=== PATIENT | female | born 1935 | race Caucasian/White ===

== ENCOUNTER → 2017-06-12 | Outpatient (CLI) | payer MEDICARE ==
[~2017-06-12] MED LIST: AMLO-1 PO; ASP325 PO; ASPI-1471 PO; ATOR10TA65 PO; LOSA50TA72 PO; MET500 PO; METF-410 PO; METO25TA23 PO; SPIR1TAB26 PO; SPIR1TAB28 PO; TRI05T TP
[2017-06-12 10:37] LABS: PLATELET COUNT, AUTOMATED 214 K/uL (150-450)
== END ==
LOC: LAB 10:22
PROVIDERS: ATTEND Emergency Medicine
DX: E11.9 Type 2 diabetes mellitus without complications (principal); I10 Essential (primary) hypertension; E78.00 Pure hypercholesterolemia, unspecified
CPT/HCPCS: 36415; 82040; 82247; 82310; 82374; 82435; 82465; 82565; 82947; 83036; 83718; 84075; 84132; 84155; 84295; 84450; 84460; 84478; 84520; 85025

== ENCOUNTER → 2017-12-21 | Outpatient (CLI) | payer MEDICARE ==
[~2017-12-21] MED LIST changes: +CLIN300C99 PO; +LEVO750T44 PO; -METF-410 PO; +METF-411 PO
[2017-12-21 11:52] LABS: PLATELET COUNT, AUTOMATED 217 K/uL (150-450)
== END ==
LOC: LAB 11:17
PROVIDERS: ATTEND Emergency Medicine
DX: L03.90 Cellulitis, unspecified (principal); I51.9 Heart disease, unspecified
CPT/HCPCS: 36415; 82310; 82374; 82435; 82565; 82947; 83036; 83880; 84132; 84295; 84520; 85025; 86140

== ENCOUNTER 2018-06-15 13:01 | Inpatient (IN) | payer MEDICARE ==
[~2018-06-15] VITALS: Ht 162.6 cm; Wt 88.5 kg
--- NOTE | 2018-06-15 13:05 | ER Report ---
History and Physical Time Seen By MD: 13:05 (MARIO GARCIA MD) HPI/ROS CHIEF COMPLAINT: Fall bilateral leg pain HISTORY OF PRESENT ILLNESS: Patient is a very pleasant 82-year-old female who is brought to the emergency department by ambulance status post fall that occurred around midnight last evening. Patient states she was carrying a plate of toast and a glass of milk and she felt her legs start to get weak as she was ambulat ing from her kitchen into her living room. She tried to brace herself on a chair but missed and fell to the ground. She denies striking her head or losing consciousness but she was unable to get up. She complains of left elbow pain, right hip pain and bilateral lower extremity pain. She denies chest pain or shortness of breath. She denies abdominal pain. Patient is not the best historian additional history was obtained from the electronic medical record. Patient denies feeling any type of febrile illness. She was last seen by her primary care provider in December 2017 for routine follow-up. He denies any recent changes in her medications. She cannot recall what her blood sugars run. 06/15/2018 1:36:09 pm the patient's son is now the bedside and provides additional history. He was the one that called rate engineer when he was unable to get into the patient's house. States that the patient has received wound care up at [facility] in the past and had 4 lower extremities looking good. But she is now living by herself and is no longer going for routine care and is unable to bend over to provide adequate cleansing to her feet. REVIEW OF SYSTEMS: Constitutional: No fever, no chills. Eyes: No discharge. ENT: No sore throat. Cardiovascular: No chest pain, no palpitations. Respiratory: No cough, no shortness of breath. Gastrointestinal: No abdominal pain, no vomiting. Genitourinary: No hematuria. Musculoskeletal: Left elbow, right hip bilateral lower extremity pain Skin: Severe stasis dermatitis to bilateral lower extremities. Neurological: No headache. (MARIO GARCIA MD) Allergies: Coded Allergies: OSMIN Inhibitors (Unverified Allergy, Unknown, UNKNOWN, 06/08/14) latex (Verified Allergy, Unknown, 06/15/18) olmesartan (Unverified Allergy, Unknown, RASH on lower legs, 06/08/14) Home Meds Active Scripts Atorvastatin Calcium (ATORVASTATIN CALCIUM) 10 Mg Tablet, 1 TAB PO DAILY for to lower cholesterol. , #90 TAB 3 Refills Prov:ARTURO CALDWELL MD 06/04/18 Losartan Potassium (LOSARTAN POTASSIUM) 50 Mg Tablet, 1 TAB PO QDAY, #90 TAB 3 Refills Prov:ARTURO CALDWELL MD 06/04/18 Metoprolol Succinate (METOPROLOL SUCCINATE) 25 Mg Tab.er.24h, 1 TAB PO QDAY for to slow heart rate., #90 TAB 3 Refills Prov:ARTURO CALDWELL MD 06/04/18 Spironolact/Hydrochlorothiazid (SPIRONOLACTONE-HCTZ 25-25 TAB) 1 Each Tablet, 0.5 EACH PO QDAY, #45 TAB 3 Refills Prov:ARTURO CALDWELL MD 06/03/18 Reported Medications Aspirin (ASPIR 81) 81 Mg Tablet.dr, 1 TAB PO QDAY, TAB 06/08/14 Past Medical/Surgical History Past medical history for hyperlipidemia, hypertension, nocturnal hypoxemia, history of stasis dermatitis on bilateral lower extremities history of type II diabetes, history of cataract extraction, history of appendectomy. (MARIO GARCIA MD) Smoking Status: Never Smoker (MARIO GARCIA MD) Constitutional Vital Sign - Last 24 Hours 06/15/18 06/15/18 06/15/18 06/15/18 13:01 13:05 13:09 13:16 Temp 97.2 Pulse ??? 95 95 Resp 18 11 B/P (MAP) 134/86 134/86 (102) O2 Delivery Nasal Cannula 06/15/18 06/15/18 06/15/18 06/15/18 13:20 13:30 13:31 13:31 Pulse 97 Resp 14 B/P (MAP) 128/112 (117) 143/40 (74) Pulse Ox 95 O2 Flow Rate 2.0 06/15/18 06/15/18 06/15/18 06/15/18 13:40 13:46 13:50 14:00 Pulse 95 Resp 26 B/P (MAP) 100/37 (58) 117/44 (68) 123/35 (64) Pulse Ox 94 06/15/18 06/15/18 06/15/18 06/15/18 14:01 14:10 14:16 14:20 Pulse 96 94 Resp 17 B/P (MAP) 119/45 (69) 122/42 (68) Pulse Ox 93 06/15/18 06/15/18 06/15/18 06/15/18 14:30 14:31 14:40 14:46 Pulse 95 94 Resp 6 32 B/P (MAP) 136/43 (74) 133/93 (106) Pulse Ox 95 06/15/18 06/15/18 14:50 15:00 B/P (MAP) 131/52 (78) 151/49 (83) (MANN,SALLY V DO) Physical Exam General/Constitutional: Patient is awake, alert, nontoxic and in no acute respiratory distress. Head: Normocephalic and atraumatic. Eyes: Conjunctival clear, Pupils are equal and reactive to light. Extraocular muscles are intact and symmetrical. Sclera are clear and anicteric. Ears:External canals are clear. Nares: No rhinorrhea or bleeding. Turbinates are pink and moist. Oropharyngeal: Mucous membranes are moist. There is no pharyngeal erythema or exudate. There are no palatal petechiae. Uvula is midline and symmetrical. Neck: Supple, no adenopathy. Cardiovascular: Heart is regular rate and rhythm without audible murmurs, rubs or gallops. Pulmonary: Lungs are clear to auscultation bilaterally. There are no wheezes, rales, or rhonchi. Chest rise is symmetrical Abdomen: Protuberent, Soft, nontender, no guarding or peritoneal signs. Extremities: Patient has a bruise to the olecranon on the left elbow but normal range of motion. Patient also is able to lift both legs off the bed against gravity but not resistance. Patient does have some right hip pain to palpation on exam without obvious deformity. Left hip is otherwise unremarkable. Patient has severe stasis dermatitis with keratosis and scaling. She has evidence of some abrasions to the top of the right foot as well as bottom of the right foot. These appear to be inflamed and secondarily infected. Both legs are warm to the touch. There is in addition to the keratosis the patient had been laying in some garbage after the fall and is stuck to the patient's skin. Neuro: Alert and oriented X3, (MARIO GARCIA MD) Medical Decision Making Data Points Result Diagram: 06/16/18 0550 06/16/18 0550 Laboratory Hematology Test 06/15/18 13:27 06/15/18 13:28 06/15/18 14:57 06/15/18 16:43 Influenza Virus Type A (PCR) Negative (NEGATIVE) Influenza Virus Type B (PCR) Negative (NEGATIVE) Red Blood Count 4.34 M/uL (4.17-5.56) Mean Corpuscular Volume 88.9 fL (80.0-96.0) Mean Corpuscular Hemoglobin 29.2 pg (26.0-33.0) Mean Corpuscular Hemoglobin Concent 32.8 g/dL (32.0-36.0) Red Cell Distribution Width 14.1 % (11.5-14.5) Mean Platelet Volume 11.2 fL (7.2-11.1) Neutrophils (%) (Auto) 92.5 % (39.4-72.5) Lymphocytes (%) (Auto) 3.4 % (17.6-49.6) Monocytes (%) (Auto) 3.9 % (4.1-12.4) Eosinophils (%) (Auto) 0.0 % (0.4-6.7) Basophils (%) (Auto) 0.2 % (0.3-1.4) Nucleated RBC Relative Count (auto) 0.0 /100WBC Neutrophils # (Auto) 21.5 K/uL (2.0-7.4) Lymphocytes # (Auto) 0.8 K/uL (1.3-3.6) Monocytes # (Auto) 0.9 K/uL (0.3-1.0) Eosinophils # (Auto) 0.0 K/uL (0.0-0.5) Basophils # (Auto) 0.0 K/uL (0.0-0.1) Nucleated RBC Absolute Count (auto) 0.00 K/uL Peripheral Blood Smear Yes Y/N Erythrocyte Sedimentation Rate 59 mm/HOUR (0-30) Prothrombin Time 14.8 seconds (12.0-14.4) Prothromb Time International Ratio 1.16 Activated Partial Thromboplast Time 43 seconds (23-35) Sodium Level 139 mmol/L (137-145) Potassium Level 4.9 mmol/L (3.5-5.0) Chloride Level 113 mmol/L (98-107) Carbon Dioxide Level 19 mmol/L (22-31) Blood Urea Nitrogen 65 mg/dl (7-18) Creatinine 2.20 mg/dl (0.52-1.04) Glomerular Filtration Rate Calc 21.3 Random Glucose 130 mg/dl (75-110) Lactate 2.1 mmol/L (0.7-2.1) Calcium Level 9.1 mg/dl (8.4-10.2) Magnesium Level 2.2 mg/dl (1.7-2.2) Total Bilirubin 0.9 mg/dl (0.2-1.3) Aspartate Amino Transf (AST/SGOT) 105 U/L (0-35) Alanine Aminotransferase (ALT/SGPT) 42 U/L (0-56) Alkaline Phosphatase 101 U/L (0-126) C-Reactive Protein 22.2 mg/dl (<1.0) B-Type Natriuretic Peptide 152 pg/ml (0-100) Total Protein 6.4 g/dl (6.3-8.2) Albumin 3.1 g/dl (3.5-5.0) Urine Color Yellow Urine Clarity Clear Urine pH 5.0 pH (4.8-9.5) Urine Specific [place] 1.016 Urine Protein Negative mg/dL (NEGATIVE) Urine Glucose (UA) Negative mg/dL (NEGATIVE) Urine Ketones Trace mg/dL (NEGATIVE) Urine Blood Moderate (NEGATIVE) Urine Nitrite Negative (NEGATIVE) Urine Bilirubin Negative (NEGATIVE) Urine Urobilinogen Negative mg/dL (0.2-1.9) Urine Leukocyte Esterase Negative (NEGATIVE) Urine RBC <1 /HPF (0-2/HPF) Urine WBC <1 /HPF (0-5/HPF) Urine Squamous Epithelial Cells None /LPF (NONE-FEW) Urine Bacteria Negative /HPF (NONE-FEW) Urine Mucus None /HPF (NONE-FEW) Total Creatine Kinase 2965 U/L (30-135) Creatine Kinase MB 105 U/L Creatine Kinase MB % 4 % Troponin I 0.487 ng/ml Chemistry Test 06/15/18 13:27 06/15/18 13:28 06/15/18 14:57 06/15/18 16:43 Influenza Virus Type A (PCR) Negative (NEGATIVE) Influenza Virus Type B (PCR) Negative (NEGATIVE) White Blood Count 23.2 k/uL (4.5-11.0) Red Blood Count 4.34 M/uL (4.17-5.56) Hemoglobin 12.7 g/dL (12.0-16.0) Hematocrit 38.6 % (34.0-47.0) Mean Corpuscular Volume 88.9 fL (80.0-96.0) Mean Corpuscular Hemoglobin 29.2 pg (26.0-33.0) Mean Corpuscular Hemoglobin Concent 32.8 g/dL (32.0-36.0) Red Cell Distribution Width 14.1 % (11.5-14.5) Platelet Count 271 K/uL (150-450) Mean Platelet Volume 11.2 fL (7.2-11.1) Neutrophils (%) (Auto) 92.5 % (39.4-72.5) Lymphocytes (%) (Auto) 3.4 % (17.6-49.6) Monocytes (%) (Auto) 3.9 % (4.1-12.4) Eosinophils (%) (Auto) 0.0 % (0.4-6.7) Basophils (%) (Auto) 0.2 % (0.3-1.4) Nucleated RBC Relative Count (auto) 0.0 /100WBC Neutrophils # (Auto) 21.5 K/uL (2.0-7.4) Lymphocytes # (Auto) 0.8 K/uL (1.3-3.6) Monocytes # (Auto) 0.9 K/uL (0.3-1.0) Eosinophils # (Auto) 0.0 K/uL (0.0-0.5) Basophils # (Auto) 0.0 K/uL (0.0-0.1) Nucleated RBC Absolute Count (auto) 0.00 K/uL Peripheral Blood Smear Yes Y/N Erythrocyte Sedimentation Rate 59 mm/HOUR (0-30) Prothrombin Time 14.8 seconds (12.0-14.4) Prothromb Time International Ratio 1.16 Activated Partial Thromboplast Time 43 seconds (23-35) Glomerular Filtration Rate Calc 21.3 Lactate 2.1 mmol/L (0.7-2.1) Calcium Level 9.1 mg/dl (8.4-10.2) Magnesium Level 2.2 mg/dl (1.7-2.2) Total Bilirubin 0.9 mg/dl (0.2-1.3) Aspartate Amino Transf (AST/SGOT) 105 U/L (0-35) Alanine Aminotransferase (ALT/SGPT) 42 U/L (0-56) Alkaline Phosphatase 101 U/L (0-126) C-Reactive Protein 22.2 mg/dl (<1.0) B-Type Natriuretic Peptide 152 pg/ml (0-100) Total Protein 6.4 g/dl (6.3-8.2) Albumin 3.1 g/dl (3.5-5.0) Urine Color Yellow Urine Clarity Clear Urine pH 5.0 pH (4.8-9.5) Urine Specific [place] 1.016 Urine Protein Negative mg/dL (NEGATIVE) Urine Glucose (UA) Negative mg/dL (NEGATIVE) Urine Ketones Trace mg/dL (NEGATIVE) Urine Blood Moderate (NEGATIVE) Urine Nitrite Negative (NEGATIVE) Urine Bilirubin Negative (NEGATIVE) Urine Urobilinogen Negative mg/dL (0.2-1.9) Urine Leukocyte Esterase Negative (NEGATIVE) Urine RBC <1 /HPF (0-2/HPF) Urine WBC <1 /HPF (0-5/HPF) Urine Squamous Epithelial Cells None /LPF (NONE-FEW) Urine Bacteria Negative /HPF (NONE-FEW) Urine Mucus None /HPF (NONE-FEW) Total Creatine Kinase 2965 U/L (30-135) Creatine Kinase MB 105 U/L Creatine Kinase MB % 4 % Troponin I 0.487 ng/ml Coagulation Test 06/15/18 13:28 Prothrombin Time 14.8 seconds Prothromb Time International Ratio 1.16 Activated Partial Thromboplast Time 43 seconds Urinalysis Test 06/15/18 14:57 Urine Color Yellow Urine Clarity Clear Urine pH 5.0 pH (4.8-9.5) Urine Specific [place] 1.016 Urine Protein Negative mg/dL (NEGATIVE) Urine Glucose (UA) Negative mg/dL (NEGATIVE) Urine Ketones Trace mg/dL (NEGATIVE) Urine Blood Moderate (NEGATIVE) Urine Nitrite Negative (NEGATIVE) Urine Bilirubin Negative (NEGATIVE) Urine Urobilinogen Negative mg/dL (0.2-1.9) Urine Leukocyte Esterase Negative (NEGATIVE) Urine RBC <1 /HPF (0-2/HPF) Urine WBC <1 /HPF (0-5/HPF) Urine Squamous Epithelial Cells None /LPF (NONE-FEW) Urine Bacteria Negative /HPF (NONE-FEW) Urine Mucus None /HPF (NONE-FEW) (PRESTONAMANDASALLY DO) EKG/Imaging EKG Interpretation EKG is of poor quality secondary to patient tremor however no obvious ST segment elevation. Patient does have nonspecific ST and T-wave changes. Monitor Interpretation: Normal Sinus Rhythm (MARIO GARCIA MD) Imaging no acute fractures (SALLY DARNELL DO) ED Course/Re-evaluation ED Course 06/15/2018 1:37:23 pm plan at this time will be to provide local wound care we will update the patient's tetanus status. She appears to have cellulitis and we will treat this empirically. We will perform an infectious-type workup we'll x- ray the left elbow, right hip bilateral tib-fib and feet. Patient will likely require admission. 06/15/2018 2:55:00 pm patient with elevated troponin. I again questioned whe ther the patient has experienced any chest pain pressure or shortness of breath over the last few days which she denies. The only symptom that could correlate with acute coronary syndrome would be weakness and perhaps that caused the past. I did discuss with the patient the possibility of transferring to a higher level of care for cardiac evaluation. I am awaiting for the patient's son to return to also discuss this with him as patient is unsure if she wants to be transferred. The elevated troponin could however be related to being on the ground causing demand ischemia rather than true clot. Patient does have an elevated white blood cell count. Both legs were cleansed thoroughly and dressed with bacitracin and Xeroform gauze. Patient is given 1 g of Rocephin IV for infection. I am awaiting placement of a Cobian catheter with temperature probe. We will also obtain imaging studies after Cobian placement. Decision to Disposition Date: Jun 16, 2018 Decision to Disposition Time: 19:00 (MARIO GARCIA MD) Clinical Indication for ER IV: IV Access ED Course 06/15/2018 6:06:39 pm Spoke with pt at length and her son. They were told that at some point pt had a heart attack. PT denies cp but I let her know that you do not always need to have pain. Pt states she is DNR/DNI and does not want a nything agressive. I spoke to son and explained that further evaluation by catherization could be done if we transfer to [place]. Family and pt want to stay here in [place] "we went down that road with my and that is not something my mom wants". Dr. Gaming willing to keep pt as long as she u nderstands we can not be agressive with her heart here in [place]. Decision to Disposition Date: Jun 15, 2018 Decision to Disposition Time: 18:18 (SALLY DARNELL DO) Depart Departure Latest Vital Signs Vital Signs Date Time Temp Pulse Resp B/P (MAP) Pulse Ox O2 Delivery O2 Flow Rate FiO2 06/15/18 15:00 151/49 (83) 06/15/18 14:46 94 32 95 06/15/18 13:31 2.0 06/15/18 13:05 97.2 Nasal Cannula (SALLY DARNELL DO) Impression: Primary Impression: Rhabdomyolysis Additional Impressions: Bilateral cellulitis of lower leg Renal insufficiency Non-ST elevated myocardial infarction (non-STEMI) Condition: Condition Unchanged Disposition: Admitted from ER Referrals: ARTURO CALDWELL MD (PCP) Problem Qualifiers Primary Impression: Rhabdomyolysis Rhabdomyolysis type: traumatic Encounter type: initial encounter Qualified Codes: T79.6XXA - Traumatic ischemia of muscle, initial encounter MARIO GARCIA MD Jun 15, 2018 13:05 SALLY DARNELL DO Jun 15, 2018 18:18
[2018-06-15] MEDS ORDERED: NS(*) 0.9% 500 ML BAG 500 ML IV ONE ×2 (13:15→15:40)
[2018-06-15] MEDS ORDERED: cefTRIAXone 1 GM VIAL IVP ONE (13:30)
[2018-06-15] MEDS ORDERED: DIPHTH/TETANUS/ACEL. PERTUSSIS IM ONLY ONE (13:40)
--- NOTE | 2018-06-15 14:05 | EKG ---
FACILITY: [facility] PATIENT NAME: PERICO MCFADDEN : [id number] MR: [id number] V: [id number] EXAM DATE: ORDERING PHYSICIAN: MARIO GARCIA TECHNOLOGIST: KEVIN Test Reason : FALL Blood Pressure : / mmHG Vent. Rate : 095 BPM Atrial Rate : 095 BPM P-R Int : 130 ms QRS Dur : 060 ms QT Int : 368 ms P-R-T Axes : 068 044 075 degrees QTc Int : 462 ms Diffuse artifact recommend repeat EKG Appears to be sinus rhythm Nonspecific ST and T wave abnormality Abnormal ECG No previous ECGs available Confirmed by DUYEN OSWALD ([id number]) on 06/15/2018 9:06:47 PM Referred By: JOSE Confirmed By:DUYEN OSWALD
[2018-06-15 14:09] LABS: PLATELET COUNT, AUTOMATED 271 K/uL (150-450)
[2018-06-15 14:19] LABS: INR 1.16
[2018-06-15] MEDS ORDERED: BACITRACIN OINT 15 GM TUBE TP ONE (14:35)
[2018-06-15] MEDS ORDERED: ASPIRIN 81 MG CHEW PO ONE (14:35)
--- NOTE | 2018-06-15 16:46 | RADIOLOGY IMAGING REPORT ---
[place] [facility] [place] NAME: Aliza Meadows : 1935 MR: [id number] V: [id number] EXAM DATE: ORDERING PHYSICIAN: MARIO GARCIA TECHNOLOGIST: Location: [facility] Patient: Aliza Meadows : 1935 Visit/Account:[id number] Date of Sevice: 06/15/2018 EXAMINATION: Portable chest radiograph single view at 3:41 PM HISTORY: Chest pain. COMPARISON: None. FINDINGS: A single portable AP view of the chest is obtained. Lines/tubes: None. Lungs/pleura: No focal consolidation or pleural effusion. Pulmonary vascularity is within normal [place] its. No evidence of pneumothorax. Heart: Normal heart size. Mediastinum: Mediastinal contours are within normal limits. Bony structures/body wall: Lateral osteophytes in the thoracic spine. IMPRESSION: No radiographic evidence of acute cardiopulmonary disease. Report Dictated By: Jose Eckert MD at 06/15/2018 4:41 PM Report E-Signed By: Jose Eckert MD at 06/15/2018 4:42 PM WSN:[id number]
--- NOTE | 2018-06-15 16:46 | RADIOLOGY IMAGING REPORT ---
FACILITY: [facility] - [place] PATIENT NAME: Aliza Meadows : 1935 MR: [id number] V: [id number] EXAM DATE: ORDERING PHYSICIAN: MARIO GARCIA TECHNOLOGIST: Location: [facility] Patient: Aliza Meadows : 1935 Visit/Account:[id number] Date of Sevice: 06/15/2018 EXAMINATION: Left tibia and fibula radiographs 2 views HISTORY: Fall. COMPARISON: None. FINDINGS: AP and lateral views of the left tibia and fibula are obtained. Bones: No evidence of acute fracture. A chronic appearing ossification at the tip of the medial mall eolus. Joint spaces: Negative. Hardware: None. Alignment: Normal. Soft tissues: Negative. IMPRESSION: No evidence of acute fracture of the left tibia or fibula. Report Dictated By: Jose Eckert MD at 06/15/2018 4:36 PM Report E-Signed By: Jose Eckert MD at 06/15/2018 4:40 PM WSN:[id number]
--- NOTE | 2018-06-15 16:49 | RADIOLOGY IMAGING REPORT ---
FACILITY: [facility] - [place] PATIENT NAME: Aliza Meadows : 1935 MR: [id number] V: [id number] EXAM DATE: ORDERING PHYSICIAN: MARIO GARCIA TECHNOLOGIST: Location: [facility] Patient: Aliza Meadows : 1935 Visit/Account:[id number] Date of Sevice: 06/15/2018 EXAMINATION: Left elbow radiographs 3 views HISTORY: Fall. COMPARISON: None. FINDINGS: AP, lateral and oblique views of the left elbow are obtained. Bones: No evidence of acute fracture. Small enthesophytes at the elbow. Joint spaces: No dislocation. Hardware: None. Alignment: Normal. Soft tissues: Negative. Effusion: None. IMPRESSION: No acute fracture or effusion of the left elbow. Report Dictated By: Jose Eckert MD at 06/15/2018 4:42 PM Report E-Signed By: Jose Eckert MD at 06/15/2018 4:45 PM WSN:[id number]
--- NOTE | 2018-06-15 16:50 | RADIOLOGY IMAGING REPORT ---
FACILITY: [facility] PATIENT NAME: lAiza Meadows : 1935 MR: [id number] V: [id number] EXAM DATE: ORDERING PHYSICIAN: MAIRO GARCIA TECHNOLOGIST: Location: [facility] Patient: Aliza Meadows : 1935 Visit/Account:[id number] Date of Sevice: 06/15/2018 CT Head without contrast and CT Cervical spine: Indication: Fall. Comparison: None available Technique: CT head: Axial CT images were obtained through the brain from the skull base to the verte x without administration of IV contrast. Reformatted coronal and sagittal images were also obtained. Technique: CT cervical spine: Axial CT imaging of the cervical spine was performed. 2-D sagittal and coronal CT reformats were also obtained. One of the following dose optimization techniques was utilized in the performance of this exam: Autom ated exposure control; adjustment of the mA and/or kV according to the patient's size; or use of an i terative reconstruction technique. Specific details can be referenced in the facility's radiology C T exam operational policy. FINDINGS: CT head: No intracranial bleed, midline shift, mass effect, extra-axial fluid collection or hydrocephalus. Age -related cerebral atrophy. Periventricular white matter ischemic changes consistent small vessel dise ase. Alegria/white matter differentiation appears normal. Bony structures show no fractures or lesions. Sinuses and mastoids visualized are clear. CT cervical spine: The vertebral bodies are aligned. No acute fracture or facet dislocation. No bony lesions. There is d iffuse moderate degenerative changes including disc space narrowing, endplate changes, osteophytes an d facet arthropathy. No discrete bony canal stenosis. Multilevel neural foramina narrowing. Endplates are maintained. No obvious disc herniation. Prevertebral soft tissues and surrounding soft tissues a re unremarkable. Lung apices are clear. IMPRESSION: 1. CT of the head shows senescent changes without acute abnormality. 2. No acute osseous or acute alignment abnormality of the cervical spine. Degenerative changes. Report Dictated By: Ac Dutta at 06/15/2018 4:35 PM Report E-Signed By: Ac Dutta at 06/15/2018 4:46 PM WSN:[id number]
--- NOTE | 2018-06-15 16:50 | RADIOLOGY IMAGING REPORT ---
FACILITY: [facility] PATIENT NAME: Aliza Meadows : 1935 MR: [id number] V: [id number] EXAM DATE: ORDERING PHYSICIAN: MARIO GARCIA TECHNOLOGIST: Location: [facility] Patient: Aliza Meadows : 1935 Visit/Account:[id number] Date of Sevice: 06/15/2018 CT Head without contrast and CT Cervical spine: Indication: Fall. Comparison: None available Technique: CT head: Axial CT images were obtained through the brain from the skull base to the verte x without administration of IV contrast. Reformatted coronal and sagittal images were also obtained. Technique: CT cervical spine: Axial CT imaging of the cervical spine was performed. 2-D sagittal and coronal CT reformats were also obtained. One of the following dose optimization techniques was utilized in the performance of this exam: Autom ated exposure control; adjustment of the mA and/or kV according to the patient's size; or use of an i terative reconstruction technique. Specific details can be referenced in the facility's radiology C T exam operational policy. FINDINGS: CT head: No intracranial bleed, midline shift, mass effect, extra-axial fluid collection or hydrocephalus. Age -related cerebral atrophy. Periventricular white matter ischemic changes consistent small vessel dise ase. Alegria/white matter differentiation appears normal. Bony structures show no fractures or lesions. Sinuses and mastoids visualized are clear. CT cervical spine: The vertebral bodies are aligned. No acute fracture or facet dislocation. No bony lesions. There is d iffuse moderate degenerative changes including disc space narrowing, endplate changes, osteophytes an d facet arthropathy. No discrete bony canal stenosis. Multilevel neural foramina narrowing. Endplates are maintained. No obvious disc herniation. Prevertebral soft tissues and surrounding soft tissues a re unremarkable. Lung apices are clear. IMPRESSION: 1. CT of the head shows senescent changes without acute abnormality. 2. No acute osseous or acute alignment abnormality of the cervical spine. Degenerative changes. Report Dictated By: Ac Dutta at 06/15/2018 4:35 PM Report E-Signed By: Ac Dutta at 06/15/2018 4:46 PM WSN:[id number]
--- NOTE | 2018-06-15 16:54 | RADIOLOGY IMAGING REPORT ---
FACILITY: [facility] PATIENT NAME: Aliza Meadows : 1935 MR: [id number] V: [id number] EXAM DATE: ORDERING PHYSICIAN: MARIO GARCIA TECHNOLOGIST: Location: [facility] [place] Patient: Aliza Meadows : 1935 Visit/Account:[id number] Date of Sevice: 06/15/2018 EXAMINATION: Right foot radiographs 3 views HISTORY: Fall. COMPARISON: None. FINDINGS: AP, lateral and oblique views of the right foot are obtained. Bones: The bones are osteopenic. No evidence of acute fracture. Plantar and Achilles calcaneal enthe sophytes. Joint spaces: Mild joint degenerative changes of the first MTP joint. Hardware: None. Soft tissues: Negative. IMPRESSION: No acute right foot fracture. Report Dictated By: Jose Eckert MD at 06/15/2018 4:45 PM Report E-Signed By: Jose Eckert MD at 06/15/2018 4:49 PM WSN:[id number]
--- NOTE | 2018-06-15 16:55 | RADIOLOGY IMAGING REPORT ---
FACILITY: [facility] - [place] PATIENT NAME: Aliza Meadows : 1935 MR: [id number] V: [id number] EXAM DATE: ORDERING PHYSICIAN: MARIO GARCIA TECHNOLOGIST: Location: [facility] Patient: Aliza Meadows : 1935 Visit/Account:[id number] Date of Sevice: 06/15/2018 EXAMINATION: Left foot radiographs 3 views HISTORY: Fall. COMPARISON: None. FINDINGS: AP, lateral and oblique views of the left foot are obtained. Bones: No evidence of acute fracture. The bones are osteopenic. Plantar and Achilles calcaneal enthe sophytes. Joint spaces: Small osteophytes in the midfoot. Hardware: None. Soft tissues: Negative. IMPRESSION: No evidence of acute left foot fracture. Report Dictated By: Jose Eckert MD at 06/15/2018 4:49 PM Report E-Signed By: Jose Eckert MD at 06/15/2018 4:52 PM [id number]
--- NOTE | 2018-06-15 17:00 | RADIOLOGY IMAGING REPORT ---
FACILITY: [facility] - [place] PATIENT NAME: Aliza Meadows : 1935 MR: [id number] V: [id number] EXAM DATE: ORDERING PHYSICIAN: MARIO GARCIA TECHNOLOGIST: Location: [facility] [place] Patient: Aliza Meadows : 1935 Visit/Account:[id number] Date of Sevice: 06/15/2018 EXAMINATION: Right tibia and fibula radiographs 2 views HISTORY: Fall. COMPARISON: None. FINDINGS: AP and lateral views of the right tibia and fibula are obtained. Bones: No evidence of acute fracture. Joint spaces: Moderate medial compartment joint space narrowing at the right knee. Hardware: None. Alignment: Normal. Soft tissues: Negative. IMPRESSION: No evidence of acute fracture of the right tibia or fibula. Report Dictated By: Jose Eckert MD at 06/15/2018 4:52 PM Report E-Signed By: Jose Eckert MD at 06/15/2018 4:55 PM WSN:[id number]
--- NOTE | 2018-06-15 17:35 | RADIOLOGY IMAGING REPORT ---
[place] [facility] [place] NAME: Aliza Meadows : 1935 MR: [id number] V: [id number] EXAM DATE: ORDERING PHYSICIAN: MARIO GARCIA TECHNOLOGIST: Location: [facility] - [place] Patient: Aliza Meadows : 1935 Visit/Account:[id number] Date of Sevice: 06/15/2018 INDICATION: fall. Trauma DATE: 06/15/2018 5:29 PM. TECHNIQUE: Two views right hip COMPARISON: None FINDINGS: The pelvic ring appears intact. Moderate degenerative findings at the hips. No fracture i dentified. IMPRESSION: No fracture identified. Report Dictated By: Susan Meadows MD at 06/15/2018 5:29 PM Report E-Signed By: Susan Meadows MD at 06/15/2018 5:31 PM WSN:[id number]
[2018-06-15 18:47] VITALS: BP 158/45
[2018-06-15] MEDS ORDERED: NS(*) 0.9% 1000 ML BAG 1,000 ML IV PRN (19:17)
[2018-06-15] MEDS ORDERED: INSULIN HUM LISPRO 100 UN/ML 3 ML VIAL SUBQ PRN (19:35)
--- NOTE | 2018-06-15 19:45 | History & Physical ---
History of Present Illness Chief Complaint Weak and fall History of Present Illness 82yo female with PMHx significant for HTN, chronic venous stasis, type 2 DM diet controlled. She reports getting up late last night to get something to eat. On her way back to her bedroom she felt "weak and shaky in my legs". She was unable to sit down before she fell to the ground. She denies LOC. She denied CP/SOB/palpitations/heart racing before or after falling. She did complain of some pain in her back/hips after the fall (x-rays negative). She was unable to arise on her own and remained on the floor for upwards of 12 hours before her son found her. She was transported via EMS to the ER for evaluation. She was found to be dehydrated with ARF, elevated troponin consistent with possible acute NSTEMI, possible cellulitis in both LE. She stated she did not wish to have transfer for evaluation/potential treatment for acute WA. She understands risk of possible worsening and even . She does want to have medical management, but no aggressive interventions. She was recommended for admission. History Problems: (1) Venous stasis dermatitis of both lower extremities Status: Chronic (2) Obesity Status: Chronic (3) Obstructive sleep apnea Status: Chronic (4) Edema Status: Chronic (5) Hypertension, benign Status: Chronic (6) Hypercholesterolemia Status: Chronic (7) Diastolic dysfunction Status: Chronic (8) Type II diabetes mellitus Status: Chronic (9) History of appendectomy Status: Resolved (10) Chronic renal failure Status: Chronic Home Meds Active Scripts Atorvastatin Calcium (ATORVASTATIN CALCIUM) 10 Mg Tablet, 1 TAB PO DAILY for to lower cholesterol. , #90 TAB 3 Refills Prov:ARTURO CALDWELL MD 06/04/18 Losartan Potassium (LOSARTAN POTASSIUM) 50 Mg Tablet, 1 TAB PO QDAY, #90 TAB 3 Refills Prov:ARTURO CALDWELL MD 06/04/18 Metoprolol Succinate (METOPROLOL SUCCINATE) 25 Mg Tab.er.24h, 1 TAB PO QDAY for to slow heart rate., #90 TAB 3 Refills Prov:ARTURO CALDWELL MD 06/04/18 Spironolact/Hydrochlorothiazid (SPIRONOLACTONE-HCTZ 25-25 TAB) 1 Each Tablet, 0.5 EACH PO QDAY, #45 TAB 3 Refills Prov:ARTURO CALDWELL MD 06/03/18 Reported Medications Aspirin (ASPIR 81) 81 Mg Tablet., 1 TAB PO QDAY, TAB 06/08/14 Allergies: Coded Allergies: OSMIN Inhibitors (Unverified Allergy, Unknown, UNKNOWN, 06/08/14) latex (Verified Allergy, Unknown, 06/15/18) olmesartan (Unverified Allergy, Unknown, RASH on lower legs, 06/08/14) Patient History: FH: CABG (coronary artery bypass surgery) BROTHER OR SISTER FH: Parkinson's disease BROTHER OR SISTER Fam hx-osteoporosis Osteoporosis MOTHER, , Age:92 Hx Smoking: No Smoking Status: Never Smoker Hx Alcohol Use: No Social Drug Use: Never Review of Systems Constitutional: No Fever, No Chills, No Night Sweats Neurological: Weakness, Dizziness Eyes: No Vision Change, No Loss of Vision ENT: No Hearing Loss Cardiovascular: No Chest Pain, No Palpitations Respiratory: No Shortness of Breath Gastrointestinal: No Nausea, No Vomiting; Diarrhea; No Hematemesis, No Hematochezia, No Melena, No Abdominal Pain Genitourinary: No Dysuria, No Hematuria, No Urinary Incontinence Musculoskeletal: Pain, Impaired Mobility Exam Vital Signs Vital Signs Date Time Temp Pulse Resp B/P (MAP) Pulse Ox O2 Delivery O2 Flow Rate FiO2 06/15/18 18:47 98.1 99 20 158/45 (82) 95 Room Air 06/15/18 13:31 2.0 General Appearance: Alert, Awake Neuro: Other (No focal motor deficits) Eyes: PERRLA ENT: Oropharynx Clear, Other (edentulous) Neck: No Masses Cardiovascular: Other (Regular with systolic murmur) Respiratory: Other (essentially clear) Chest: No Tenderness GI: Abd Soft and Non-Tender : No CVA Tenderness Extremities: Warm, Perfused Integumentary: Generalized Fragile Skin, Other (venous stasis changes both LE with diffuse areas of shallow ulceration, weeping serous fluid, deeper ulceration over right great toe, areas of erythema extending distally over both feet and proximally to near both knees) Psych: Alert & Oriented X3 Medical Decision Making Data Points Result Diagram: 06/15/18 1328 06/15/18 1328 Item Value Date Time Troponin I 0.487 ng/ml *H 06/15/18 1643 Troponin I 0.412 ng/ml *H 06/15/18 1328 Albumin 3.1 g/dl L 06/15/18 1328 Total Protein 6.4 g/dl 06/15/18 1328 B-Type Natriuretic Peptide 152 pg/ml H 06/15/18 1328 C-Reactive Protein 22.2 mg/dl H 06/15/18 1328 Total Creatine Kinase 3013 U/L H 06/15/18 1328 Total Creatine Kinase 2965 U/L H 06/15/18 1643 Alkaline Phosphatase 101 U/L 06/15/18 1328 Alanine Aminotransferase (ALT/SGPT) 42 U/L 06/15/18 1328 Aspartate Amino Transf (AST/SGOT) 105 U/L H 06/15/18 1328 Total Bilirubin 0.9 mg/dl 06/15/18 1328 Magnesium Level 2.2 mg/dl 06/15/18 1328 Calcium Level 9.1 mg/dl 06/15/18 1328 Lactate 2.1 mmol/L 06/15/18 1328 Activated Partial Thromboplast Time 43 seconds H 06/15/18 1328 Prothromb Time International Ratio 1.16 06/15/18 1328 Prothrombin Time 14.8 seconds H 06/15/18 1328 Urine Mucus None /HPF 06/15/18 1457 Urine Bacteria Negative /HPF 06/15/18 1457 Urine Squamous Epithelial Cells None /LPF 06/15/18 1457 Urine WBC <1 /HPF 06/15/18 1457 Urine RBC <1 /HPF 06/15/18 1457 Urine Leukocyte Esterase Negative 06/15/18 1457 Urine Urobilinogen Negative mg/dL 06/15/18 1457 Urine Bilirubin Negative 06/15/18 1457 Urine Nitrite Negative 06/15/18 1457 Urine Blood Moderate 06/15/18 1457 Urine Ketones Trace mg/dL 06/15/18 1457 Urine Glucose (UA) Negative mg/dL 06/15/18 1457 Urine Protein Negative mg/dL 06/15/18 1457 Urine Specific [place] 1.016 06/15/18 1457 Urine pH 5.0 pH 06/15/18 1457 Urine Clarity Clear 06/15/18 1457 Urine Color Yellow 06/15/18 1457 Influenza Virus Type A (PCR) Negative 06/15/18 1327 Influenza Virus Type B (PCR) Negative 06/15/18 1327 Erythrocyte Sedimentation Rate 59 mm/HOUR H 06/15/18 1328 EKG / Imaging EKG Interpretation PATIENT NAME: PERICO MCFADDEN : [id number] MR: [id number] V: [id number] EXAM DATE: ORDERING PHYSICIAN: MARIO GARCIA TECHNOLOGIST: KEVIN Test Reason : FALL Blood Pressure : / mmHG Vent. Rate : 095 BPM Atrial Rate : 095 BPM P-R Int : 130 ms QRS Dur : 060 ms QT Int : 368 ms P-R-T Axes : 068 044 075 degrees QTc Int : 462 ms Normal sinus rhythm Low voltage QRS Nonspecific ST and T wave abnormality Abnormal ECG No previous ECGs available Referred By: JOSE Assessment and Plan Problems: (1) Non-ST elevated myocardial infarction (non-STEMI) Status: Acute Assessment & Plan: It appears she has had an acute NSTEMI in the past 12-24 hours. This may have been the cause or a result of her fall. Will place on telemetry. Watch troponins. Continue beta rg, statin, aspirin therapy. Will place on renal dosed Lovenox. Will abide by her wishes for medical management only. She has also deemed herself DNR/DNI. (2) Acute on chronic renal failure Status: Acute Assessment & Plan: It appears she is significantly dehydrated and could have a component of rhabdomyolysis as well. Will give generous IV fluids. Watch labs closely. (3) Bilateral cellulitis of lower leg Status: Acute Assessment & Plan: She certainly has stasis dermatitis, but may also have acute cellulitis. She does have an elevated WBC count. Will place on IV cefepime and vancomycin. Will load with IV vancomycin and check a 12 hour random level to further guide dosing. (4) Type II diabetes mellitus Status: Chronic Assessment & Plan: Diet controlled. Place on ADA diet, watch glucoses, use SSI as needed. (5) Hypertension, benign Status: Chronic Assessment & Plan: Will continue beta rg, but hold her ARB and diuretic for now. Copies to: ARTURO CALDWELL MD ; Venous Thromboembolism Antithrombotics Is Pt On Any Antithrombotics?: Yes Exam Sepsis Risk: No Definite Risk DUYEN OSWALD MD Jun 15, 2018 19:45
[2018-06-15] MEDS ORDERED: VANCOMYCIN(*) 1 GM VIAL 2 GM in NS(*) 0.9% 500 ML BAG 500 ML IVPB ONE (20:00)
[2018-06-15] MEDS: NS(*) 0.9% 1000 ML BAG 1,000 ML IV PRN (20:17)
[2018-06-15] MEDS ORDERED: CEFEPIME HCL 1 GM VIAL IVP SCH (21:00)
[2018-06-15] MEDS: CEFEPIME HCL 1 GM VIAL IVP SCH (22:54)
[2018-06-16 06:41] LABS: PLATELET COUNT, AUTOMATED 254 K/uL (150-450)
[2018-06-16 06:58] VITALS: BP 137/51
[2018-06-16 09:59] VITALS: Ht 162.6 cm; Wt 88.5 kg
[2018-06-16] MEDS: ASPIRIN 325 MG ENTERIC COATED PO SCH (10:30)
[2018-06-16] MEDS: ENOXAPARIN 100 MG/ML SYR SC SCH (10:30)
[2018-06-16] MEDS: METOPROLOL SUCC XL 25 MG TABCR PO SCH (10:30)
[2018-06-16] MEDS: ATORVASTATIN 10 MG TAB PO SCH (10:30)
[2018-06-16 12:03] VITALS: BP 154/53
--- NOTE | 2018-06-16 13:43 | Hospitalist Progress Note ---
Subjective Progress Notes Subjective 82F admitted for BL LE dermatitis, suspected cellulitis. SHILO overnight, resting comfortably this am. Patient Complains of: Gastrointestinal: No Nausea, No Vomiting Physical Exam Vital Signs Date Time Temp Pulse Resp B/P (MAP) Pulse Ox O2 Delivery O2 Flow Rate FiO2 06/16/18 12:07 106 06/16/18 12:03 97.5 24 154/53 (86) 92 Room Air 06/15/18 13:31 2.0 Intake and Output 06/16/18 07:00 Intake Total 520 ml Output Total 800 ml Balance -280 ml IV Total 520 ml Output Urine Total 800 ml # Bowel Movements 1 General Appearance: Alert, Awake, No Acute Distress, Afebrile Neuro: No Gross deficits ENT: Normal Cardiovascular: Normal Rhythm & Peripheral Pulses Respiratory: No Respiratory Distress Extremities: Perfused, Edema Integumentary: Other (B/L weapingbleeding, erythema to lower extremities.) Result Diagram: 06/16/18 0550 06/16/18 0550 Monitor Interpretation: Normal Sinus Rhythm Assessment and Plan Problems: (1) Non-ST elevated myocardial infarction (non-STEMI) Status: Acute Assessment & Plan: It appears she has had an acute NSTEMI in the past 12-24 hours. This may have been the cause or a result of her fall. Troponins trending down, no issues on telemetry. Continue beta rg, statin, aspirin therapy. Renal dosed Lovenox. Will abide by her wishes for medical management only. She has also deemed herself DNR/DNI. (2) Acute on chronic renal failure Status: Acute Assessment & Plan: It appears she is significantly dehydrated and could have a component of rhabdomyolysis as well. Improved with IV hydration. (3) Bilateral cellulitis of lower leg Status: Acute Assessment & Plan: She certainly has stasis dermatitis, but may also have acute cellulitis. She does have an elevated WBC count. Will place on IV cefepime and vancomycin. (4) Type II diabetes mellitus Status: Chronic Assessment & Plan: Diet controlled. ADA diet, watch glucoses, use SSI as needed. (5) Hypertension, benign Status: Chronic Assessment & Plan: Will continue beta rg, but hold her ARB and diuretic for now. Exam Sepsis Risk: Sepsis Risk GUMARO RODRIGUEZ DO Jun 16, 2018 13:43
--- NOTE | 2018-06-16 15:25 | Pharmacy Note ---
Vancomycin Management Note Vanco Dosing Note 82 yo female admitted for cellulitis of left lower legs. SC 2.2 on 06/15 and 1.7 on 06/16. Dose of Vancomycin 2 gm given on 06/15 at 2000 with a trough 12 hours later of 18.72. Dosed at 1250 mg q 24 hours with a goal trough of 10-20. Next trough due 06/17 at 1900. EVE HEARD Jun 16, 2018 15:25
[2018-06-16] MEDS: ACETAMINOPHEN 325 MG TAB PO PRN (15:35)
[2018-06-16 15:37] VITALS: BP 132/50
--- NOTE | 2018-06-16 15:45 | Pharmacy Note ---
Vancomycin Management Note Vanco Dosing Note Est CrCl = 26.5 EVE HEARD Jun 16, 2018 15:45
[2018-06-16] MEDS: NS(*) 0.9% 1000 ML BAG 1,000 ML IV PRN (17:10)
[2018-06-16 18:53] VITALS: BP 133/45
[2018-06-16] MEDS: VANCOMYCIN(*) 1 GM VIAL 1 GM, VANCOMYCIN (*) 0.5 GM VIAL 0.25 GM in NS(*) 0.9% 250 ML B... IVPB SCH (20:10)
[2018-06-16] MEDS: CEFEPIME HCL 1 GM VIAL IVP SCH (22:42)
[2018-06-16 23:28] VITALS: BP 155/54
[2018-06-17 03:19] VITALS: BP 124/48
[2018-06-17] MEDS: NS(*) 0.9% 1000 ML BAG 1,000 ML IV PRN (03:38)
[2018-06-17] MEDS: ACETAMINOPHEN 325 MG TAB PO PRN ×2 (03:38→11:56)
[2018-06-17 05:55] LABS: PLATELET COUNT, AUTOMATED 218 K/uL (150-450)
[2018-06-17 08:10] VITALS: BP 125/47
[2018-06-17] MEDS: ATORVASTATIN 10 MG TAB PO SCH (10:05)
[2018-06-17] MEDS: ASPIRIN 325 MG ENTERIC COATED PO SCH (10:05)
[2018-06-17] MEDS: METOPROLOL SUCC XL 25 MG TABCR PO SCH (10:05)
[2018-06-17] MEDS: ENOXAPARIN 100 MG/ML SYR SC SCH (10:06)
--- NOTE | 2018-06-17 10:40 | Medical Nutrition Therapy ---
Nutrition Anthropometrics Height (Inches): 64.00 Height (Calculated Centimeters: 162.985428 Weight (Pounds): 195 Weight (Calculated Kilograms): 88.451 BMI: 33.5 Krish Nutrition Score: Adequate Krish Nutrition Risk Score: 13 Dietary Referral Nutrition Risk Factors: Nutrition Risk Comment: Physical Findings Physical Appearance: Obese BMI 30-39 Skin Appearance Skin Appearance: Edema Edema Location Modifier: Both Edema Location: Lower Extremity Type of Edema: Degree of Edema: Gastrointestinal Symptoms GI Symtoms: Tube Present: Bowel Sounds: Recent Bowel Pattern: Stool Characteristics: Nutritional Diagnosis Nutritional Risk Acuity 1: Acute/ES Renal Nutritional Risk Acuity 2: Chronic Renal Failure Nutritional Risk Acuity 3: Fair Appetite Nutritional Risk Acuity 4: Age Related Past Medical History: Venous stasis of dermatitis in both lower extremities, obesity, MACO, edema, HTN, hypercholesterolemia, T2DM, appendectomy, chronic renal failure Nutritional Acuity: 1-High Nutrition Diagnosis: Decreased Nutrient Needs Nutrition Etiology: Physiological Causes Nutrition Problem/Etiology/Sym: decreased protien, Na, phos, r/t dx ARF aEB creatinine 1.4, BUN 48 Adjusted Energy Requirement Re: 1717 (Rudyard Eckert adj for obesity) Protein Requirement: 70 (.8gm/kg) Fluid Requirement: 2200 (25ml/kg) Nutrition Intervention: Cont diet as ordered, Encourage intake Nutrition Monitoring & Eval Nutrition Goals: Eat 75-100% Meal Nutrition Follow-Up: Fair Intake RD Patient Assessment Time: [address] Assessment Type: RD Assessment Patient Nutrition Acuity: 1-High Follow Up Date: Jun 20, 2018 Nutritional Comment: 2/3 Pt admitted with weakness and had a recent fall. Dx with non-STEMI, acute renal failure, and bilateral cellulitis of lower leg. Hx of venous stasis of dermatitis of both lower extremities, obesity, MACO, edema, HTN, hypercholestrolemia, T2DM, appendectomy, and chronic renal failure. Pt on enoxaparin, and insulin. Blood glucose WNL. WBC elevated at 17.0, RBC of 3.86 and hgb of 11.1 are decreased. Troponin I is elevated but decreased frmo 0.487 to 0.317. Total creatine kinase is elevated but decreased from 2965 to 1495. AST of 95 is elevated. BUN of 55 and creatinine of 1.70 are elevated. Pt on ADA diet with no reported intakes at this time. Monitor for adequate intake, and blood glucose WNL. -AKG 2/4 Pt cont on diabetic diet, eating 50-100% of meals. BUN cont elevated but declining to 48 from 65, creatintine declined to 1.4 from 2.2. Alb declnied to 2.2. BG of 81-130 is within desired range. Will cont to monitor and encourage intake. KVNG LAU Jun 17, 2018 10:40
[2018-06-17 11:52] VITALS: BP 121/54
--- NOTE | 2018-06-17 12:41 | Hospitalist Progress Note ---
Subjective Progress Notes Subjective She is reporting burning pain below knees bilaterally. Physical Exam Vital Signs Date Time Temp Pulse Resp B/P (MAP) Pulse Ox O2 Delivery O2 Flow Rate FiO2 06/17/18 11:52 98.0 88 20 121/54 (76) 93 Nasal Cannula 1.0 Intake and Output 06/17/18 07:00 Intake Total 2758.5 ml Output Total 725 ml Balance 2033.5 ml Intake Oral 780 ml IV Total 1978.5 ml Output Urine Total 725 ml # Bowel Movements 2 General Appearance: Alert, Awake, No Acute Distress Integumentary: Other (erythema mid gaming to ankles bilaterally. right foot with mild erythema. skin breakdown on lateral low legs bilaterally. Diffuse scabbing on shins) Result Diagram: 06/17/1853506/17/18535 Monitor Interpretation: Normal Sinus Rhythm Assessment and Plan Problems: (1) Bilateral cellulitis of lower leg Status: Acute Assessment & Plan: She certainly has stasis dermatitis, but may also have acute cellulitis. Much skin sloughing on low legs. The right foot appears mildly cellulitic and has a heel ulcer and right 1st mtp eschar. She did have an elevated WBC count, but it has resolved. Afebrile. On IV cefepime and vancomycin. Continue current treatment. PT to evaluate the foot/leg sores. (2) Non-ST elevated myocardial infarction (non-STEMI) Status: Acute Assessment & Plan: It appears she has had an acute NSTEMI in the past 12-24 hours. This may have been the cause or a result of her fall. Troponins are trending down, no issues on telemetry. Continue beta rg, statin, aspirin therapy. Renal dosed Lovenox to be stopped. Will abide by her wishes for medical management only. She has also deemed herself DNR/DNI. Potentially, might start Plavix tomorrow. (3) Acute on chronic renal failure Status: Acute Assessment & Plan: It appears she is significantly dehydrated and could have had a component of rhabdomyolysis as well. Improved with IV hydration. Now saline locked (4) Type II diabetes mellitus Status: Chronic Assessment & Plan: Diet controlled. ADA diet, watch glucoses, use SSI as needed. (5) Hypertension, benign Status: Chronic Assessment & Plan: Will continue beta rg, but hold her ARB and diuretic for now. Exam Sepsis Risk: No Definite Risk NADIRA ADAMS MD Jun 17, 2018 12:41
--- NOTE | 2018-06-17 14:50 | NUR ---
Physical Therapy Impression PT/OT co-treat for eval following PT wound eval and wrapping of B) LE's. Pt was agreeable to ambulate to chair, but then noted need for toileting. Pt tolerated short distance to BR and then chair was wheeled closer due to pt fatigue. Pt is CGA/Min assist for transfers and ambulation with FWW. Recommend short-term subacute rehab to facilitate return to prior level of indep in her home environment. PT wound eval completed. PT to perform further objective measures of B)LE girth, possible VIDYA eval and wound care dimensions tomorrow after pt is showered by nursing, in order to determine where open areas are and which areas are previously clotted blood. PT will also complete nail care following shower when nails are more suited for trimming. B) lower legs demo burn like injuries with unroofed blisters posteriorly and very cracked and inflamed skin anteriorly. Additionally, R) dorsum and plantar surface of foot have areas of excoriation that is scabbed and R) heel has an unstable area of black eschar that demos increased tenderness with palpation, drainage around the edges and increased warmth and redness. Unable to determine depth of this site due to necrotic tissue obsuring true base of wound. R) Medial great toe MTP joint exhibits circular lesion that is dry and stable currently, measuring approximately 1.3cm Diameter, and may represent an area of damage from arterial insufficiency. B) feet have poorly managed toe nails that will require trimming to avoid further skin compromise and allow pt to don appropriate footwear. Pt notes that she is only able to wear flip-flops and has 2 small dogs at home. Pt states that she noticed these areas of blisters approximately a month ago, but "didn't realize how bad they were". Pt indicates that she has been applying neosporin and hydrocortisone cream and catie lotion. When asked regarding bathing, pt notes that she has an antique tub that she is not able to use and no shower facility available, thus pt does sponge bathing only and is not able to reach her feet easily. Pt would likely benefit from short-term subacute rehab initially and then progress to [facility] services to facilitate a consistent foot care program and prevention of further complications. Pt notes that she has obtained compression stockings to wear in the past, but that she is unable to wear them when she has an open wound. Physical Therapy Goals 1. Pt to be Modified indep with bed mobility and supine to/from sit transfers 2. Pt to be Modified indep with sit to/from stand transfers 3. Pt to ambulate x 100' with least restrictive device and SBA/Mod indep 4. Pt to alana up/down 2 steps without rail with SBA/CGA. Patient's Goals
--- NOTE | 2018-06-17 15:11 | NUR ---
Occupational Therapy Impression Co-evaluation with PT. Pt. would benefit from OT services 5 x / week to increase independence in ADL activities. Pt. would also benefit from short term subacute rehab upon d/c. Occupational Therapy Goals 1. Pt. to perform dressing activities with Min A. 2. Pt. to perform showering activities with Min A. 3. Pt. to perform toileting activities with Min A. 4. Pt. to perform grooming activities with I. Patient's Goal
--- NOTE | 2018-06-17 15:57 | NUR ---
ECF Referral - Met with patient and explained rehab philosophy and expectations. Will certainly qualify for skilled rehab. PASRR negative. Will require one more night in acute care. If she remains medically stable, can be admitted on 06/18/18.
[2018-06-17 16:04] VITALS: BP 139/45
[2018-06-17 19:33] VITALS: BP 148/54
--- NOTE | 2018-06-17 20:41 | Pharmacy Note ---
Vancomycin Management Note Vanco Dosing Note Vanco trough 16.96; keep dose at 1250 mg q24 hours and draw next trough on 06/18 at 1900. EVE HEARD Jun 17, 2018 20:41
[2018-06-17] MEDS: VANCOMYCIN(*) 1 GM VIAL 1 GM, VANCOMYCIN (*) 0.5 GM VIAL 0.25 GM in NS(*) 0.9% 250 ML B... IVPB SCH (20:52)
[2018-06-17] MEDS: CEFEPIME HCL 1 GM VIAL IVP SCH (22:52)
[2018-06-17 22:53] VITALS: BP 134/43
[2018-06-18 03:21] VITALS: BP 141/46
[2018-06-18] MEDS: ACETAMINOPHEN 325 MG TAB PO PRN (03:43)
[2018-06-18 06:09] LABS: PLATELET COUNT, AUTOMATED 202 K/uL (150-450)
[2018-06-18 07:29] VITALS: BP 132/59
[2018-06-18] MEDS ORDERED: APAP/HYDROCODONE 325/5 TAB PO PRN (08:05)
[2018-06-18] MEDS ORDERED: INFLUENZA VIRUS VAC 0.5ML SYR IM ONLY ONE (09:00)
--- NOTE | 2018-06-18 09:25 | Transfer Summary (ECF/SWB) ---
Transfer Summary (ECF/SWB) Problems: (1) Bilateral cellulitis of lower leg Status: Acute Assessment & Plan: She was placed on treatment for bilateral cellulitis. She remains on cefepime and vancomycin. Her cultures have been negative. (2) Venous stasis dermatitis of both lower extremities Status: Chronic Assessment & Plan: She was evaluated by the wound care team. She will continue with wound care while on extended care. (3) Non-ST elevated myocardial infarction (non-STEMI) Status: Acute Assessment & Plan: She did have a slight increase of her troponin, but her EKG showed no acute changes. She was started on aspirin and metoprolol. An echocardiogram is pending. (4) Acute on chronic renal failure Status: Acute Assessment & Plan: He renal function has been improving with IV fluids. (5) Type II diabetes mellitus Status: Chronic Assessment & Plan: She is not on chronic medications. We currently have her on sliding scale level #1. (6) Hypertension, benign Status: Chronic Assessment & Plan: Will continue beta rg, but hold her ARB and diuretic for now. Latest Vital Signs Vital Signs Date Time Temp Pulse Resp B/P (MAP) Pulse Ox O2 Delivery O2 Flow Rate FiO2 06/18/18 07:46 92 Nasal Cannula 1.0 06/18/18 07:29 98.4 88 20 132/59 (83) Result Diagram: 06/18/18 0556 06/18/18 0556 Condition: Improved Disposition: SNF/NH Treatment Goals and Plan Patient requires group home for End of Life Care/Comfort Care and is ready for admission to Extended Care. Any change in condition is described below. Services Required: PT, OT, Wound Care Copies To 1: ARTURO CALDWELL MD ; JAYNE HOLLOWAY DO Jun 18, 2018 09:25
[2018-06-18] MEDS: METOPROLOL SUCC XL 25 MG TABCR PO SCH (09:26)
[2018-06-18] MEDS: ASPIRIN 325 MG ENTERIC COATED PO SCH (09:26)
[2018-06-18] MEDS: ATORVASTATIN 10 MG TAB PO SCH (09:26)
--- NOTE | 2018-06-18 10:25 | Antimicrobial Stewardship ---
Antimicrobial Stewardship Empiricly appropriate: Yes Significant PMH: Yes (DM2, Chronic venous stasis, CRF) Support empiric regimen: Yes Comment Broad empiric Rx coverage--> consider de-escalation Approriate Cultures done: Yes (Blood Cx) Renal/Hepatic dosing: Yes (Dosing Vancomycin based on levels, acute on chronic renal failure) Determine cumulative duration: Day 4 Determine standard duration: Total duration 7-14 days depending on response Comment 82 yo F who presented to the ED s/p a fall who has a PMH of DM2, venous stasis, acute LA, acute on chronic renal failure. She was admitted for treatment of a bilateral cellulitis and medical management of NSTEMI Tmax afebrile WBC 23.2 -->9.2 ESR 59 CRP 22.2-->14.5 Influenza A and B (-) Blood Cx x 2 NGTD Urine Cx (-) Vancomycin Levels Random 06/16 @ 1999 = 18.72 Trough 06/17 @ 2000 = 16.96 Pending Trough on 06/18 @ 1900 - goal 15-20 mcg/mL Antibiotics Vancomycin 1.25g IV q24h Cefepime 1 g IV q24h Today is day 4 of antibiotics, wbc have decreased, CRP has decreased, symptomatically improved, afebrile, no risk factors for MDRO, consider de- escalation of therapy to a first generation cephalosporin or an anti- staphylococcal penicillin. Continue treatment with antibiotics for 7-14 days depending on wound assessment and wound care recommendations. Consider de-escalation of therapy tomorrow. Vivian Arndt, KimoD, BCOP VIVIAN ARNDT Jun 18, 2018 10:25
== END 2018-06-18 10:45 | DRG 281 ==
LOC: ER 13:17 → MED 18:02
PROVIDERS: ADMIT Internal Medicine; ATTEND Internal Medicine
PROC: 0JDP3ZZ Extraction of Left Lower Leg Subcutaneous Tissue and Fascia, Percutaneous Approach (ICD-10-PCS; principal; 2018-06-15)
PROC: 0JDN3ZZ Extraction of Right Lower Leg Subcutaneous Tissue and Fascia, Percutaneous Approach (ICD-10-PCS; 2018-06-15)
DX: I21.4 Non-ST elevation (NSTEMI) myocardial infarction (principal); L03.116 Cellulitis of left lower limb; N17.9 Acute kidney failure, unspecified; L03.115 Cellulitis of right lower limb; T79.6XXA Traumatic ischemia of muscle, initial encounter; G47.34 Idiopathic sleep related nonobstructive alveolar hypoventilation; E78.5 Hyperlipidemia, unspecified; Z66 Do not resuscitate; I87.8 Other specified disorders of veins; E86.0 Dehydration; I12.9 Hypertensive chronic kidney disease with stage 1 through stage 4 chronic kidney disease, or unspecified chronic kidney disease; E11.22 Type 2 diabetes mellitus with diabetic chronic kidney disease; N18.9 Chronic kidney disease, unspecified; Z23 Encounter for immunization; W18.30XA Fall on same level, unspecified, initial encounter; Y92.000 Kitchen of unspecified non-institutional (private) residence as the place of occurrence of the external cause; Y99.8 Other external cause status; Z88.8 Allergy status to other drugs, medicaments and biological substances; Z91.040 Latex allergy status
CPT/HCPCS: 36415; 36416; 70450; 71045; 72125; 80202; 81001; 82040; 82247; 82310; 82374; 82435; 82550; 82553; 82565; 82947; 82948; 83605; 83735; 83880; 84075; 84132; 84155; 84295; 84450; 84460; 84484; 84520; 85025; 85610; 85651; 85730; 86140; 87040; 87088; 87502; 90471; 90715; 93005; 93306; 96361; 96374; 97161; 97162; 97165; 99285; C1758; J0692; J0696; J1650; J3370; J7030; J7040

== ENCOUNTER → 2018-06-15 | Outpatient (CLI) | payer MEDICARE ==
[~2018-06-15] MED LIST changes: -LOSA50TA72 PO; +LOSA50TA80 PO; -METF-411 PO; +METF-450 PO
[2018-06-16 09:59] VITALS: BMI 33.5
== END ==
LOC: AMB 12:27
PROVIDERS: ATTEND Nurse Practitioner
DX: M79.605 Pain in left leg (principal); M79.604 Pain in right leg; M79.89 Other specified soft tissue disorders; R21 Rash and other nonspecific skin eruption; L97.929 Non-pressure chronic ulcer of unspecified part of left lower leg with unspecified severity; L97.919 Non-pressure chronic ulcer of unspecified part of right lower leg with unspecified severity; R53.1 Weakness; R09.02 Hypoxemia
CPT/HCPCS: A0425; A0429

== ENCOUNTER 2018-06-18 10:45 | Inpatient (IN) | payer MEDICARE ==
[2018-06-16 09:59] VITALS: Ht 162.6 cm; Wt 90.4 kg
[~2018-06-18] VITALS: Ht 162.6 cm; Wt 90.4 kg
[2018-06-18] MEDS ORDERED: ACETAMINOPHEN 325 MG TAB PO PRN (10:55)
[2018-06-18] MEDS ORDERED: CEFEPIME HCL 1 GM VIAL IVP SCH (10:55)
[2018-06-18] MEDS ORDERED: INSULIN HUM LISPRO 100 UN/ML 3 ML VIAL SUBQ PRN (10:55)
[2018-06-18] MEDS ORDERED: VANCOMYCIN(*) 1 GM VIAL 1 GM, VANCOMYCIN (*) 0.5 GM VIAL 0.25 GM in NS(*) 0.9% 250 ML B... IVPB SCH (10:55)
[2018-06-18 11:00] VITALS: BP 140/42
--- NOTE | 2018-06-18 11:12 | Antimicrobial Stewardship ---
Antimicrobial Stewardship Comment Antimicrobial Stewardship Empiricly appropriate: Yes Significant PMH: Yes (DM2, Chronic venous stasis, CRF) Support empiric regimen: Yes Comment Broad empiric Rx coverage--> consider de-escalation Approriate Cultures done: Yes (Blood Cx) Renal/Hepatic dosing: Yes (Dosing Vancomycin based on levels, acute on chronic renal failure) Determine cumulative duration: Day 4 Determine standard duration: Total duration 7-14 days depending on response Comment 82 yo F who presented to the ED s/p a fall who has a PMH of DM2, venous stasis, acute MT, acute on chronic renal failure. She was admitted for treatment of a bilateral cellulitis and medical management of NSTEMI Tmax afebrile WBC 23.2 -->9.2 ESR 59 CRP 22.2-->14.5 Influenza A and B (-) Blood Cx x 2 NGTD Urine Cx (-) Vancomycin Levels Random 06/16 @ 1999 = 18.72 Trough 06/17 @ 2000 = 16.96 Pending Trough on 06/18 @ 1900 - goal 15-20 mcg/mL Antibiotics Vancomycin 1.25g IV q24h Cefepime 1 g IV q24h Today is day 4 of antibiotics, wbc have decreased, CRP has decreased, symptomatically improved, afebrile, no risk factors for MDRO, consider de- escalation of therapy to a first generation cephalosporin or an anti- staphylococcal penicillin. Continue treatment with antibiotics for 7-14 days depending on wound assessment and wound care recommendations. Consider de- escalation of therapy tomorrow. Vivian Arndt, PharmD, OP VIVIAN ARNDT Jun 18, 2018 10:25 <Electronically signed by VIVIAN ARNDT> D/ [id number] [facility] CC: LUCINDA MILES Jun 18, 2018 11:12
--- NOTE | 2018-06-18 11:20 | Consultant Pharmacy Review ---
Sales Research Analyst Review Medication Review Do All Mecications have a Diag: Yes Beers Criteria Medication 2015 Sliding Scale Insulin: Slidin Scale Insulin Disease-Drug Interactions History of Falls/Fractures: Opioids Other General Cautions Lexicomp Interaction Analysis A = No known interaction C = Monitor therapy X = Avoid combination B = No action needed D = Consider therapy modification Drugs in this analysis: Acetaminophen; Ecotrin Arthritis Strength [OTC]; HumaLOG; Lipitor; Lortab; Maxipime; Toprol XL; Vancomycin * Drug-Drug Interactions C Ecotrin Arthritis Strength [OTC] (Salicylates) HumaLOG (Blood Glucose Lowering Agents) Depends on Dose C HumaLOG (Insulins) Toprol XL (Beta-Blockers) B Acetaminophen Lortab (Opioid Analgesics) Pneumococcal Vaccine HX Pneumo Vac ([id number]): No HX Pneumo Vac (Pneumovax): No Comments Regarding the Review Patient is candidate for influenza and pneumococcal vaccinations but she refuses all vaccinations. Monitor patient for falls due to Lortab use and do not e xceed 3-4 grams of acetaminophen in 24 hours. Patient is on Cefepime and Vancomycin for cellulitis (see Antimicrobial Stewardship Note by Vivian Stevens). LUCINDA MILES Jun 18, 2018 11:20
--- NOTE | 2018-06-18 12:50 | NUR ---
Physical Therapy Impression PT/OT co-treat for pt safety. Pt tolerated ambulation in hallway x 80' with FWW and close chair follow. Pt does require Min assist to negotiate walker safely and is initially retropulsive with standing, but improves with further ambulation. Physical Therapy Goals 1. Pt to be modified indep with all bed mobility and supine to/from sit transfers 2. Pt to be modified indep with all sit to/from stand transfers from a variety of surfaces 3. Pt to alana ambulation x 150' with least restrictive device and SBA/Modified indep 4. Pt to alana up/down platform step with least restrictive device and SBA/CGA. Patient's Goals
--- NOTE | 2018-06-18 12:50 | NUR ---
Physical Therapy Impression PT/OT ECF Eval completed followed by co-treat. Please see ITS documentation for further information. PT eval completed for B) lower leg wounds. Please refer to ITS documentation for further information. Physical Therapy Goals 1. Pt to be modified indep with all bed mobility and supine to/from sit transfers 2. Pt to be modified indep with all sit to/from stand transfers from a variety of surfaces 3. Pt to alana ambulation x 150' with least restrictive device and SBA/Modified indep 4. Pt to alana up/down platform step with least restrictive device and SBA/CGA. Patient's Goals
--- NOTE | 2018-06-18 14:56 | NUR ---
Occupational Therapy Impression OT evaluation completed with PT. Please refer to notes for details regarding plan of care and goals. Occupational Therapy Goals 1. Pt. to perform dressing activities with Min A. 2. Pt. to perform toileting activities with Mod I. 3. Pt. to perform light meal prep with I. 4. Pt. to perform "sponge bath" with Min A. Patient's Goal
--- NOTE | 2018-06-18 15:12 | OT ECF NOTE ---
Type of Note: Initial Note Primary Medical Diagnosis: Rhabdomyolysis, Bilateral LE's cellulitis. Occupational Therapy Evaluation Date: 06-18-18 SUBJECTIVE: Prior Hospitalization: Pt. was on [facility] medical floor from 06-15-18 to 06-18-18. Prior Level of Function: Independent with all IADL's with some assistance from son. Pt. states that at baseline, she only "sponge bathes" at home. Prior Living Status: Single level house Community Services: None utilized prior to admission. Home Accessibility: One step into home Equipment Owned: Cane Medical Complications/Past Medical History: Please refer to chart for details. Psychosocial Support: Supportive son. Pain Scale (0-10): None stated during initial evaluation. OBJECTIVE: Strength: MMT: Right Left Shoulder Flexion [*] [*] Elbow Flexion [*] [*] Wrist Extension [*] [*] Siebel Administrator [*] [*] (5= normal, 4= good, 3= fair, 2= poor, 1= trace) Functional Transfer: Assistive Device: Front wheeled walker Transfer Ability: Minimum assistance 2-person assist ADL: Upper body dressing: Assistive device: Upper body dressing ability: Refused during IE. Lower body dressing: Assistive device: Lower body dressing ability: Total A to camila socks Toileting: Assistive device: Toileting ability: Grooming/hygiene: Assistive device: Grooming ability: Bathing: Assistive device: Bathing ability: Standardized Assessment: Stanley Index of Activities of Daily Living- Pt. scored a 8/20 on this Index upon initial evaluation. ASSESSMENT: Pt. is a 82 year old female, who resides alone, in [place], who was admitted to [facility] medical floor (on 06/15/18) following a fall at home in which she was unable to get up from for 12 hrs. until son arrived and called EMT's. Pt. was diagnosed with rhabdomyolysis, bilateral cellulitis of lower legs and a NonsteMI. Pt. also has a history of DM Type II, obstructive sleep apnea and obesity. Pt. currently requires assistance to perform all ADL's. Pt. was admitted to [facility] ECF for continued rehab and wound care. Problem List/Current Limitations: Pain Decreased activity alana Decreased strength Generalized weakness Short Term Goals: 1. Pt. to perform dressing activities with Min A. 2. Pt. to perform toileting activities with Mod I. 3. Pt. to perform light meal prep with I. 4. Pt. to perform "sponge bath" with Min A. Kettle Firer Goals: Return home with care. Patient Goals: Return home Rehabilitation Prognosis: Fair Barriers to Discharge: Resides alone, advanced age, wounds on Bilateral LE's. PLAN: The patient will benefit from skilled occupational therapy services 5 times per week for 2 weeks including: Thank you for this referral. If you have any questions, concerns, or comments about this report or plan, please contact me at . Andie Elizabeth, OTR/L Occupational Therapy [facility]
--- NOTE | 2018-06-18 16:09 | Medical Nutrition Therapy ---
Nutrition Anthropometrics Height (Inches): 64 Weight (Pounds): 195 (from medical floor) BMI: 33.5 Krish Nutrition Score: Adequate Krish Nutrition Risk Score: 15 Dietary Referral Nutrition Risk Factors: Unplanned Loss >10lbs Nutrition Risk Comment: Physical Findings Physical Appearance: Obese BMI 30-39 Skin Appearance Skin Appearance: Edema Edema Location Modifier: Both Edema Location: Arm Type of Edema: Degree of Edema: 1+ Gastrointestinal Symptoms GI Symtoms: Change in Bowel Pattern Tube Present: Bowel Sounds: Recent Bowel Pattern: Stool Characteristics: Nutritional Diagnosis Nutritional Risk Acuity 1: Acute/ES Renal Nutritional Risk Acuity 2: Chronic Renal Failure Nutritional Risk Acuity 3: Fair Appetite Nutritional Risk Acuity 4: Age Related Past Medical History: Venous stasis of dermatitis in both lower extremities, obesity, MACO, edema, HTN, hypercholesterolemia, T2DM, appendectomy, chronic renal failure Nutritional Acuity: 1-High Nutrition Diagnosis: Decreased Nutrient Needs Nutrition Etiology: Physiological Causes Nutrition Problem/Etiology/Sym: decreased Na, protein r/t dx ARF AEB BUN 38, creatinine 1.3 Adjusted Energy Requirement Re: 1720 ([place] Eckert adj for obesity) Protein Requirement: 70 (.8gm/kg) Fluid Requirement: 2200 (25ml/kg) Diet Type: 2 Gram Sodium (NA), Diabetic Nutrition Intervention: Cont diet as ordered, Encourage intake, HS snack Additional Diet Restrictions: OFFER SF NUTR SUPPLMENT IF NO HIGH PROTEIN FOOD ORDERED OR IF INTAKE <50% Nutrition Monitoring & Eval Nutrition Goals: Eat 75-100% Meal RD Patient Assessment Time: [address] Assessment Type: RD Assessment Patient Nutrition Acuity: 1-High Follow Up Date: Jun 25, 2018 Nutritional Comment: 2/5 Pt admitted s/p bilateral cellulitis to legs with ARF. Pt has 2+ edema BLE. Anticipate wt loss when edema resolved. Pt on diabetic diet,was eating 50-100% of meals on medical unit. BUN cont elevated but declining to 38 from 65, creatintine declined to 1.3 from 2.2. Alb declined to 1.9. BG of 81-130 on medical unit is within desired range. Will offer nutr supplment if intake < 505 or no high protein food ordered. Goal is to provide adquate but not excessive protein r/t ARF. Will cont to monitor and encourage intake. KVNG LAU Jun 18, 2018 16:09
[2018-06-18 16:10] VITALS: BP 102/46
--- NOTE | 2018-06-18 19:51 | Pharmacy Note ---
Vancomycin Management Note Vanco Dosing Note Patient is on vancomycin for CELLULITIS, pharmacy monitoring and adjusting doses. Antimicrobials: Vancomycin 1250 mg every 24 hours, Day 3 CEFEPIME 1G QDAY Pertinent Lab Tests SCR 1.3 VANCOMYCIN TROUGH 19.43 Assessment: CrCl 45ML/MIN Renal function is STABLE Vancomycin Monitoring Assessment: Goal Vancomycin Trough Level: 15-20 mcg/ml Plan: 1) Vancomycin dose: 1250 mg every 24 hours 2) Vancomycin monitoring: A level will be ordered for 06/18/18 @1900, 1 hour before the 2000HRS dose Pharmacy will continue to monitor daily and adjust regimen as appropriate. LIBIA MIN Jun 18, 2018 19:51
[2018-06-18] MEDS ORDERED: NS(*) 0.9% 500 ML BAG 500 ML IV PRN (19:55)
[2018-06-19 07:25] VITALS: BP 130/51
[2018-06-19] MEDS: APAP/HYDROCODONE 325/5 TAB PO PRN (07:47)
[2018-06-19] MEDS: METOPROLOL SUCC XL 25 MG TABCR PO SCH (08:48)
[2018-06-19] MEDS: ATORVASTATIN 10 MG TAB PO SCH (08:48)
[2018-06-19] MEDS: ASPIRIN 325 MG ENTERIC COATED PO SCH (08:49)
--- NOTE | 2018-06-19 09:51 | PT ECF NOTE ---
Type of Note: Initial Note Primary Medical Diagnosis: Rhabdomyolysis, Bilateral LE's cellulitis. Physical Therapy Evaluation Date: 06-18-18 SUBJECTIVE: Prior Hospitalization: [facility] from [facility]18 to 06-18-18. Prior Level of Function: Independent with all IADL's with some assistance from son. Pt. states that at baseline, she only "sponge bathes" at home. Prior Living Status: Single level house Community Services: None utilized prior to admission. Home Accessibility: One step into home Equipment Owned: Cane Medical Complications/Past Medical History: Please refer to chart for details. Psychosocial Support: Supportive son who resides locally. Pain Scale (0-10): None stated during initial evaluation. OBJECTIVE: Strength: 3+/5 overall with fatigue noted after short level of activity. ROM: (please note any abnormalities) WNL Sensation: (please note any abnormalities) No paresthesias reported Other Neuro findings: n/a Bed Mobility: Not assessed at time of eval, as pt was up in recliner and declined to return to bed after therapy. Assistive device: Transfers: Minimum assistance x 2 person; CGA Assistive Device: Front wheeled walker Gait: Minimum assistance; Verbal cues; CGA Assistive device: Front wheeled walker Stairs: Not yet safe to address Assistive device: Timed Up and Go (>12 seconds indicated increased risk for falls): Pt unable to complete test safely as min assist is currently required to negotiate walker during ambulation. Will address in upcoming session as appropriate. 10 meter walk test (0.6m/second cannot function independently): n/a Other Objective Measures: n/a ASSESSMENT: Pt. is a 82 year old female, who resides alone, in [place], who was [facility] (on [facility]18) following a fall at home in which she was unable to get up from for 12 hrs. until son arrived and called EMT's. Pt. was diagnosed with rhabdomyolysis, bilateral cellulitis of lower legs and a NonsteMI. Pt. also has a history of DM Type II, obstructive sleep apnea and obesity. Pt. currently requires assistance to perform all ADL's. Pt. was admitted [facility] for continued rehab and wound care. Problem List/Current Limitations: Decreased activity alana; Decreased strength; Decreased balance; Generalized weakness; Significant open wound circumferentially to B) lower legs extending 33 cm in length at longest area and width at ankle is approximately 27cm for both legs, resulting in a total area of 1,749 sq cm that requires extensive care. Short Term Goals: 1. Pt to be modified indep with all bed mobility and supine to/from sit transfers 2. Pt to be modified indep with all sit to/from stand transfers from a variety of surfaces 3. Pt to alana ambulation x 150' with least restrictive device and SBA/Modified indep 4. Pt to alana up/down platform step with least restrictive device and SBA/CGA. 5. Wounds to demo 100% granulation tissue with no further debridement needs, such that nursing can manage dressing changes. Intermediate Goals: Pt to return home with appropriate level of assistance available. Patient Goals: Return home Rehabilitation Prognosis: Good Barriers for Discharge: Pt fatigues very quickly currently and is unable to complete basic ADL's, including household distance ambulation and toileting safely at this time. PLAN: The patient will benefit from skilled physical therapy services 5 times per week for 2 weeks including: Therapeutic Exercise Therapeutic Activities, Transfer Training, Gait Training, Stair Training, ADL's, Safety Training, Wound Care, Pt/Caregiver Training, Bed Mobility Thank you for this referral. If you have any questions, concerns, or comments about this report or plan, please contact me at . H. Adrienne Kamara, PT, MPT, OMS MTDD
--- NOTE | 2018-06-19 11:50 | NUR ---
Occupational Therapy Impression Pt. reclined in johanny chair with LE's elevated. Pt. refusing dressing and ambulation activities and denies having to use the restroom. Pt. agreeable to participate in UB strengthening activities. Pt. performed HEP with 3.0 # for 2 sets of 10 repetitions each. Continue with POC. Occupational Therapy Goals 1. Pt. to perform dressing activities with Min A. 2. Pt. to perform toileting activities with Mod I. 3. Pt. to perform light meal prep with I. 4. Pt. to perform "sponge bath" with Min A. Patient's Goal
--- NOTE | 2018-06-19 15:12 | NUR ---
Physical Therapy Impression Pt tolerated straight leg raises while PT reapplied additional ABD pads and kerlix to B) Lower legs in recliner. Pt then tolerated transfers sit to/from stand x 5 reps in order to complete pericare related to diarrhea and then complete TUG test with FWW and CGA/SBA. Pt required 1 minute 54 seconds to perform this objective measure. Physical Therapy Goals 1. Pt to be modified indep with all bed mobility and supine to/from sit transfers 2. Pt to be modified indep with all sit to/from stand transfers from a variety of surfaces 3. Pt to alana ambulation x 150' with least restrictive device and SBA/Modified indep 4. Pt to alana up/down platform step with least restrictive device and SBA/CGA. Patient's Goals
[2018-06-19 17:00] VITALS: BP_SYST 115; BP_SYST 156; BP_DIAS 46; BP_DIAS 68
[2018-06-19] MEDS: CEFEPIME HCL 1 GM VIAL IVP SCH (22:22)
[2018-06-20] MEDS: APAP/HYDROCODONE 325/5 TAB PO PRN (07:39)
[2018-06-20 07:43] VITALS: BP 138/48
[2018-06-20] MEDS: ASPIRIN 325 MG ENTERIC COATED PO SCH (09:02)
[2018-06-20] MEDS: METOPROLOL SUCC XL 25 MG TABCR PO SCH (09:02)
[2018-06-20] MEDS: ATORVASTATIN 10 MG TAB PO SCH (09:02)
--- NOTE | 2018-06-20 11:04 | NUR ---
Physical Therapy Impression Pt requires some encouragement to ambulate with PT. Pt is SBA for sit to/from stand transfer today, with improved balance overall. Pt tolerated ambulation with FWW and CGA x 130' with W/C follow for safety. Pt requested to use bathroom at end of session and was able to manage doffing bried with modified indep, while PT managed robe. Pt left with nursing at end of session. Physical Therapy Goals 1. Pt to be modified indep with all bed mobility and supine to/from sit transfers 2. Pt to be modified indep with all sit to/from stand transfers from a variety of surfaces 3. Pt to alana ambulation x 150' with least restrictive device and SBA/Modified indep 4. Pt to alana up/down platform step with least restrictive device and SBA/CGA. Patient's Goals
--- NOTE | 2018-06-20 16:26 | NUR ---
Occupational Therapy Impression Pt alert and agreeable to OT tx. Declining ADLs/mobility. Agreeable to UB ther ex. Continue POC. Occupational Therapy Goals 1. Pt. to perform dressing activities with Min A. 2. Pt. to perform toileting activities with Mod I. 3. Pt. to perform light meal prep with I. 4. Pt. to perform "sponge bath" with Min A. Patient's Goal
[2018-06-20 17:25] VITALS: BP 145/81
[2018-06-20] MEDS: CEFEPIME HCL 1 GM VIAL IVP SCH (22:16)
[2018-06-21 07:30] VITALS: BP 130/51
[2018-06-21] MEDS: METOPROLOL SUCC XL 25 MG TABCR PO SCH (08:42)
[2018-06-21] MEDS: ASPIRIN 325 MG ENTERIC COATED PO SCH (08:43)
[2018-06-21] MEDS: APAP/HYDROCODONE 325/5 TAB PO PRN (08:43)
[2018-06-21] MEDS: ATORVASTATIN 10 MG TAB PO SCH (08:43)
--- NOTE | 2018-06-21 10:30 | NUR ---
Physical Therapy Impression For B) lower legs: Non-excisional debridement completed with the use of tweezers to a depth of subcutaneous tissue in order to remove yellow slough. Lateral side of R) lower leg has two areas with adhered yellow/brown slough, to which silver calcium alginate was applied to encourage further softening for debridement. Xeroform vasaline gauze placed circumferentially around legs followed by 5 pads of abd pads to each lower leg to cover entire lower leg as well, this was then secured with rolled gauze in a retrograde manner. Nursing to replace rolled gauze as needed, leaving xeroform and abd pads in contact with pt's skin until next shower planned for Sunday after breakfast, with PT to arrive again for debridement and fresh dressings change at 9:45. Physical Therapy Goals 1. Pt to be modified indep with all bed mobility and supine to/from sit transfers 2. Pt to be modified indep with all sit to/from stand transfers from a variety of surfaces 3. Pt to alana ambulation x 150' with least restrictive device and SBA/Modified indep 4. Pt to alana up/down platform step with least restrictive device and SBA/CGA. Patient's Goals
--- NOTE | 2018-06-21 11:01 | ECF History & Physical ---
Transfer Summary (ECF/SWB) Problems: (1) Bilateral cellulitis of lower leg Status: Acute Assessment & Plan: She was placed on treatment for bilateral cellulitis. She remains on cefepime and vancomycin. Her cultures have been negative. (2) Venous stasis dermatitis of both lower extremities Status: Chronic Assessment & Plan: She was evaluated by the wound care team. She will continue with wound care while on extended care. (3) Non-ST elevated myocardial infarction (non-STEMI) Status: Acute Assessment & Plan: She did have a slight increase of her troponin, but her EKG showed no acute changes. She was started on aspirin and metoprolol. An echocardiogram is pending. (4) Acute on chronic renal failure Status: Acute Assessment & Plan: He renal function has been improving with IV fluids. (5) Type II diabetes mellitus Status: Chronic Assessment & Plan: She is not on chronic medications. We currently have her on sliding scale level #1. (6) Hypertension, benign Status: Chronic Assessment & Plan: Will continue beta rg, but hold her ARB and diuretic for now. Latest Vital Signs Vital Signs Date Time Temp Pulse Resp B/P (MAP) Pulse Ox O2 Delivery O2 Flow Rate FiO2 06/18/18 07:46 92 Nasal Cannula 1.0 06/18/18 07:29 98.4 88 20 132/59 (83) Result Diagram: 06/18/1855506/18/18555 Condition: Improved Disposition: SNF/NH Treatment Goals and Plan Patient requires [facility] for End of Life Care/Comfort Care and is ready for admission to Extended Care. Any change in condition is described below. Services Required: PT, OT, Wound Care Copies To 1: ARTURO CALDWELL MD ; JAYNE HOLLOWAY DO Jun 18, 2018 09:25 <Electronically signed by JAYNE HOLLOWAY DO> D/ 4 4 4 RAMIN CC: ARTURO CALDWELL MD ADDENDUM Addendum: JAYNE HOLLOWAY DO on 06/18/18 @ 11:03 Correction. Patient is going to [facility] for ongoing treatment and antibiotics. She is not end of life care. D/T: 03 03 RAMIN CC:ARTURO CALDWELL MD MTDD
--- NOTE | 2018-06-21 12:33 | NUR ---
Physical Therapy Impression Pt able to tolerate ambulation x 100' with RW and SBA. Physical Therapy Goals 1. Pt to be modified indep with all bed mobility and supine to/from sit transfers 2. Pt to be modified indep with all sit to/from stand transfers from a variety of surfaces 3. Pt to alana ambulation x 150' with least restrictive device and SBA/Modified indep 4. Pt to alana up/down platform step with least restrictive device and SBA/CGA. Patient's Goals
--- NOTE | 2018-06-21 14:27 | NUR ---
Occupational Therapy Impression Pt. only agreeable to participate in UB strengthening exercises. Pt. provided with fall prevention education. Pt. is not open to care services and would like to pursue OP therapy. Continue with POC. Occupational Therapy Goals 1. Pt. to perform dressing activities with Min A. 2. Pt. to perform toileting activities with Mod I. 3. Pt. to perform light meal prep with I. 4. Pt. to perform "sponge bath" with Min A. Patient's Goal
[2018-06-21 15:44] VITALS: BP 107/49
[2018-06-21] MEDS: CEFEPIME HCL 1 GM VIAL IVP SCH (22:22)
[2018-06-22 08:08] VITALS: BP 131/57
[2018-06-22] MEDS: METOPROLOL SUCC XL 25 MG TABCR PO SCH (09:25)
[2018-06-22] MEDS: ASPIRIN 325 MG ENTERIC COATED PO SCH (09:25)
[2018-06-22] MEDS: ATORVASTATIN 10 MG TAB PO SCH (09:25)
[2018-06-22 16:35] VITALS: BP 131/50
[2018-06-22] MEDS: CEFEPIME HCL 1 GM VIAL IVP SCH (23:09)
[2018-06-22] MEDS: APAP/HYDROCODONE 325/5 TAB PO PRN (23:35)
[2018-06-23 07:25] VITALS: BP 128/53
[2018-06-23] MEDS: METOPROLOL SUCC XL 25 MG TABCR PO SCH (09:24)
[2018-06-23] MEDS: ASPIRIN 325 MG ENTERIC COATED PO SCH (09:24)
[2018-06-23] MEDS: ATORVASTATIN 10 MG TAB PO SCH (09:24)
[2018-06-23 20:14] VITALS: BP 131/44
[2018-06-23] MEDS: APAP/HYDROCODONE 325/5 TAB PO PRN (21:14)
[2018-06-23] MEDS: CEFEPIME HCL 1 GM VIAL IVP SCH (23:35)
[2018-06-24 07:50] VITALS: BP 125/49
[2018-06-24] MEDS: ASPIRIN 325 MG ENTERIC COATED PO SCH (08:58)
[2018-06-24] MEDS: METOPROLOL SUCC XL 25 MG TABCR PO SCH (08:58)
[2018-06-24] MEDS: ATORVASTATIN 10 MG TAB PO SCH (08:58)
--- NOTE | 2018-06-24 13:05 | NUR ---
Occupational Therapy Impression Pt. refusing to get dressed and participate in kitchen activity. Pt. stating that she will not be using a walker at home, "because it will not fit." Pt. is not open to therapist completing home evaluation, stating, "there are no changes that need to be made." Pt. requiring Min A to perform toileting activities. Continue with POC. Occupational Therapy Goals 1. Pt. to perform dressing activities with Min A. 2. Pt. to perform toileting activities with Mod I. 3. Pt. to perform light meal prep with I. 4. Pt. to perform "sponge bath" with Min A. Patient's Goal
[2018-06-24 15:20] VITALS: BP 124/51
--- NOTE | 2018-06-24 17:25 | Medical Nutrition Therapy ---
Nutrition Anthropometrics Height (Inches): 64.00 Height (Calculated Centimeters: 162.261016 Weight (Pounds): 197 Weight (Calculated Kilograms): 89.358 BMI: 33.5 Krish Nutrition Score: Adequate Krish Nutrition Risk Score: 15 Dietary Referral Nutrition Risk Factors: Unplanned Loss >10lbs Nutrition Risk Comment: Physical Findings Physical Appearance: Obese BMI 30-39 Skin Appearance Skin Appearance: Edema Edema Location Modifier: Both Edema Location: Arm Type of Edema: Degree of Edema: 1+ Gastrointestinal Symptoms GI Symtoms: Change in Bowel Pattern Tube Present: Bowel Sounds: Recent Bowel Pattern: Stool Characteristics: Nutritional Diagnosis Nutritional Risk Acuity 1: Acute/ES Renal Nutritional Risk Acuity 2: Chronic Renal Failure Nutritional Risk Acuity 3: Fair Appetite Nutritional Risk Acuity 4: Age Related Past Medical History: Venous stasis of dermatitis in both lower extremities, obesity, MACO, edema, HTN, hypercholesterolemia, T2DM, appendectomy, chronic renal failure Nutritional Acuity: 1-High Nutrition Diagnosis: Decreased Nutrient Needs Nutrition Etiology: Physiological Causes Nutrition Problem/Etiology/Sym: decreased Na, protein r/t dx ARF AEB BUN 38, creatinine 1.3 Adjusted Energy Requirement Re: 1720 (Wesson Eckert adj for obesity) Protein Requirement: 70 (.8gm/kg) Fluid Requirement: 2200 (25ml/kg) Diet Type: 2 Gram Sodium (NA), Diabetic Nutrition Intervention: Cont diet as ordered, Encourage intake, HS snack Nutrition Monitoring & Eval RD Patient Assessment Time: [address] Assessment Type: RD Re-Assessment Patient Nutrition Acuity: 1-High Follow Up Date: Jul 02, 2018 Nutritional Comment: 2/5 Pt admitted s/p bilateral cellulitis to legs with ARF. Pt has 2+ edema BLE. Anticipate wt loss when edema resolved. Pt on diabetic diet,was eating 50-100% of meals on medical unit. BUN cont elevated but declining to 38 from 65, creatintine declined to 1.3 from 2.2. Alb declined to 1.9. BG of 81-130 on medical unit is within desired range. Will offer nutr supplment if intake < 505 or no high protein food ordered. Goal is to provide adquate but not excessive protein r/t ARF. Will cont to monitor and encourage intake. BK 06/24 pt cont on diabetic diet. Intake average 78%. pt usually taking a high protein food at meals. will d.c nutr supplment. Wt up 3# from med floor. BG WNR. Will cont to monitor and encourage intake. KVNG LAU Jun 24, 2018 17:25
[2018-06-24] MEDS: CEFEPIME HCL 1 GM VIAL IVP SCH (23:25)
[2018-06-25 08:20] VITALS: BP 139/50
[2018-06-25] MEDS: ATORVASTATIN 10 MG TAB PO SCH (09:02)
[2018-06-25] MEDS: METOPROLOL SUCC XL 25 MG TABCR PO SCH (09:02)
[2018-06-25] MEDS: ASPIRIN 325 MG ENTERIC COATED PO SCH (09:02)
[2018-06-25] MEDS: APAP/HYDROCODONE 325/5 TAB PO PRN ×2 (09:48→21:01)
--- NOTE | 2018-06-25 09:54 | NUR ---
5-day MDS completed with pt. C: 15, D: 02, E: no concerns, Q: pt expects to DC to community, no referrals made yet, but may be needed. SW will continue to follow for DC needs. Care Conference scheduled for this afternoon.
--- NOTE | 2018-06-25 14:46 | NUR ---
Physical Therapy Impression Pt is limited by Rohan LE pain this date after wound care. Declining toileting and getting dressed. Min A for supine to sit. Will need continued emphasis in this area, though she does report she was sleeping in a recliner for a while prior to admission. CGA sit <> stand and short distance ambulation to johanny-chair. Educated pt on the importance of getting up more frequently and encouraged her to ambulate to/from her care conference this pm. Pt agreed. Cont. with POC. Physical Therapy Goals 1. Pt to be modified indep with all bed mobility and supine to/from sit transfers 2. Pt to be modified indep with all sit to/from stand transfers from a variety of surfaces 3. Pt to alana ambulation x 150' with least restrictive device and SBA/Modified indep 4. Pt to alana up/down platform step with least restrictive device and SBA/CGA. Patient's Goals
--- NOTE | 2018-06-25 14:55 | NUR ---
Occupational Therapy Impression Pt. refused dressing activities and denied toileting activities. Pt. agreeable to ambulate to [facility] care conference. Pt. also refusing Home Evaluation and care for wound care. Pt. stating that she will attend OP therapy for wound care, if needed. Pt. performed grooming activities, standing sink front, with SBA. Continue with POC. Occupational Therapy Goals 1. Pt. to perform dressing activities with Min A. 2. Pt. to perform toileting activities with Mod I. 3. Pt. to perform light meal prep with I. 4. Pt. to perform "sponge bath" with Min A. Patient's Goal
[2018-06-25 17:10] VITALS: BP 116/41
[2018-06-25] MEDS: HYDROCORTISONE 1% CR 28.35 GM TP SCH (20:51)
[2018-06-25] MEDS: NYSTATIN 100,000 U/GM PWD 15GM TP SCH (20:52)
[2018-06-26 05:48] LABS: PLATELET COUNT, AUTOMATED 223 K/uL (150-450)
[2018-06-26 07:30] VITALS: BP 119/50
[2018-06-26] MEDS: HYDROCORTISONE 1% CR 28.35 GM TP SCH ×2 (08:31→21:00)
[2018-06-26] MEDS: NYSTATIN 100,000 U/GM PWD 15GM TP SCH ×2 (08:31→21:00)
[2018-06-26] MEDS: ASPIRIN 325 MG ENTERIC COATED PO SCH (08:32)
[2018-06-26] MEDS: ATORVASTATIN 10 MG TAB PO SCH (08:32)
[2018-06-26] MEDS: METOPROLOL SUCC XL 25 MG TABCR PO SCH (08:32)
--- NOTE | 2018-06-26 11:21 | NUR ---
Physical Therapy Impression Pt is more agreeable to mobility this date after removal of catheter. Pt is able to perform all isra care without assist, but does require assistance doffing soiled brief and donning a new one. Notified OT of this to work on strategies to increase independence. Ambulation x 75' with FWW. Pt does report some minor heel pain with ambulation from wound care, but notes the fatigue limits her more than the pain. Cont. with POC. Physical Therapy Goals 1. Pt to be modified indep with all bed mobility and supine to/from sit transfers 2. Pt to be modified indep with all sit to/from stand transfers from a variety of surfaces 3. Pt to alana ambulation x 150' with least restrictive device and SBA/Modified indep 4. Pt to alana up/down platform step with least restrictive device and SBA/CGA. Patient's Goals
--- NOTE | 2018-06-26 12:13 | NUR ---
Occupational Therapy Impression Pt. attempted to camila depends over feet while sitting in chair. Pt. unable to do so. Pt. provided with rerecording mixer and educated regarding donning/doffing of depends. Pt. demonstrated the ability to perform activity with Mod I. Pt. states that her son may have a rerecording mixer for her to use at home. OT left note to check with son if this is correct. Continue with POC. Occupational Therapy Goals 1. Pt. to perform dressing activities with Min A. 2. Pt. to perform toileting activities with Mod I. 3. Pt. to perform light meal prep with I. 4. Pt. to perform "sponge bath" with Min A. Patient's Goal
--- NOTE | 2018-06-26 14:15 | Hospitalist Progress Note ---
Subjective Progress Notes Subjective The patient states she is a little down because she can't go home yet, but otherwise she is doing well. Physical Exam Vital Signs Date Time Temp Pulse Resp B/P (MAP) Pulse Ox O2 Delivery O2 Flow Rate FiO2 06/26/18 07:30 98.3 61 14 119/50 (73) 98 Nasal Cannula 2.0 l Intake and Output 06/26/18 07:00 Intake Total 580 ml Output Total 575 ml Balance 5 ml Intake Oral 580 ml Output Urine Total 575 ml # Voids 1 # Bowel Movements 1 General Appearance: Alert, Awake, No Acute Distress, Afebrile Neuro: No Gross deficits Eyes: PERRLA Cardiovascular: Regular Rate and Rhythm (With 2-3/6 RUKHSANA heard best at RUSB. Click heard as well.), Other (Both legs wrapped. No edema of the feet.) Respiratory: No Respiratory Distress, Clear to Auscultation GI: Soft and Non-Tender Extremities: Warm Integumentary: Other (Both LE wrapped.) Psych: Alert & Oriented X3, Appropriate Mood & Affect Result Diagram: 06/26/1853406/26/18534 Assessment and Plan Problems: (1) Bilateral cellulitis of lower leg Status: Acute Assessment & Plan: She was placed on treatment for bilateral cellulitis. She has completed her course of antibiotics. Her cultures have been negative. (2) Venous stasis dermatitis of both lower extremities Status: Chronic Assessment & Plan: She was evaluated by the wound care team. She will continue with wound care while on extended care. (3) Non-ST elevated myocardial infarction (non-STEMI) Status: Acute Assessment & Plan: She did have a slight increase of her troponin, but her EKG showed no acute changes. She was started on aspirin and metoprolol. An echocardiogram showed no wall motion abnormalities and a normal EF. (4) Acute on chronic renal failure Status: Acute Assessment & Plan: He renal function improved with IV fluids. She is now saline locked but we are holding her diuretic. Her creatinine is 1.3 which is her basel ine. (5) Type II diabetes mellitus Status: Chronic Assessment & Plan: She is not on chronic medications. We currently have her on sliding scale level #1 but she has not required dosing while on ECF. (6) Hypertension, benign Status: Chronic Assessment & Plan: Will continue beta rg, but continue to hold her ARB and diuretic for now as her BP is normal off of them. (7) Hypercholesterolemia Status: Chronic Assessment & Plan: Continue atorvastatin. Time Spent on Plan of Care: < 30 min EVE OSWALD MD Jun 26, 2018 14:15
[2018-06-26 19:30] VITALS: BP 125/48
[2018-06-26] MEDS: APAP/HYDROCODONE 325/5 TAB PO PRN (21:34)
[2018-06-27 07:45] VITALS: BP 154/46
[2018-06-27] MEDS: METOPROLOL SUCC XL 25 MG TABCR PO SCH (09:12)
[2018-06-27] MEDS: NYSTATIN 100,000 U/GM PWD 15GM TP SCH ×2 (09:12→20:43)
[2018-06-27] MEDS: ASPIRIN 325 MG ENTERIC COATED PO SCH (09:12)
[2018-06-27] MEDS: HYDROCORTISONE 1% CR 28.35 GM TP SCH ×2 (09:12→20:44)
[2018-06-27] MEDS: ATORVASTATIN 10 MG TAB PO SCH (09:12)
--- NOTE | 2018-06-27 11:43 | NUR ---
Occupational Therapy Impression Pt ambulating x100ft with RW. SBA toileting. Pt (I)ly doffing soiled brief and donning clean brief with no AD. Pt progressing well towards OT goals. Continue POC. Occupational Therapy Goals 1. Pt. to perform dressing activities with Min A. 2. Pt. to perform toileting activities with Mod I. 3. Pt. to perform light meal prep with I. 4. Pt. to perform "sponge bath" with Min A. Patient's Goal
--- NOTE | 2018-06-27 15:44 | NUR ---
Physical Therapy Impression Pt up in chair, agreeable to ther-ex but not ambulation as she just ambulated with nursing despite PT encouragement. PT instructed patient in seated LE ther-ex in order to improve LE strength for functional tasks. Pt with overall good tolerance, with PT cues for eccentric control. Pt ambulated with PT to bathroom at end of session with SBA and use of RW. She does not plan to use RW at d/c and may benefit from SPC training if appropriate. Physical Therapy Goals 1. Pt to be modified indep with all bed mobility and supine to/from sit transfers 2. Pt to be modified indep with all sit to/from stand transfers from a variety of surfaces 3. Pt to alana ambulation x 150' with least restrictive device and SBA/Modified indep 4. Pt to alana up/down platform step with least restrictive device and SBA/CGA. Patient's Goals
[2018-06-27 16:10] VITALS: BP 142/44
[2018-06-27] MEDS: APAP/HYDROCODONE 325/5 TAB PO PRN (20:43)
[2018-06-28 07:45] VITALS: BP 103/50
[2018-06-28 08:45] VITALS: BP 130/41
[2018-06-28] MEDS: METOPROLOL SUCC XL 25 MG TABCR PO SCH (08:46)
[2018-06-28] MEDS: HYDROCORTISONE 1% CR 28.35 GM TP SCH ×2 (08:46→20:34)
[2018-06-28] MEDS: NYSTATIN 100,000 U/GM PWD 15GM TP SCH ×2 (08:46→20:34)
[2018-06-28] MEDS: ASPIRIN 325 MG ENTERIC COATED PO SCH (08:46)
[2018-06-28] MEDS: ATORVASTATIN 10 MG TAB PO SCH (08:46)
[2018-06-28] MEDS: APAP/HYDROCODONE 325/5 TAB PO PRN (08:50)
--- NOTE | 2018-06-28 12:08 | NUR ---
14-day MDS completed with pt. C: 15, D: 03, E: no concerns, Q: pt expects to DC to community, no referrals made yet, but may be needed. Pt has not yet decided on HH agency. SW will continue to follow for DC needs.
--- NOTE | 2018-06-28 12:40 | NUR ---
Physical Therapy Impression Pt tolerated ambulation in hallway with FWW and up/down platform step with rail x 2 reps. Pt completed TUG test in 38 seconds. Continue to address increased indep with bed mobility. Pt is able to transfer supine to sit at edge of bed, but with great and taxing effort, causing shortness of breath. Wounds improving greatly. L) LE left open to air with vasaline applied and leg placed on chucks pad due to superficial wound with scant drainage still noted at posterior calf. New blisters forming at L) ankle. Pt encouraged to elevate LE's and limit salt intake. Nursing notes that she has not gained weight recently. R) LE improving as well but continues to require more significant dressing change with xeroform, abd pads and rolled gauze to address ongoing drainage. Physical Therapy Goals 1. Pt to be modified indep with all bed mobility and supine to/from sit transfers 2. Pt to be modified indep with all sit to/from stand transfers from a variety of surfaces 3. Pt to alana ambulation x 150' with least restrictive device and SBA/Modified indep 4. Pt to alana up/down platform step with least restrictive device and SBA/CGA. Patient's Goals
[2018-06-28 18:31] VITALS: BP 140/60
--- NOTE | 2018-06-28 19:54 | NUR ---
Patient c\o being tired this shift. She refused supper and has been sleeping since start of shift. VS WNLs earlier tonight. Temp at this time is 99.4. Denies any other discomfort or shortness of breath. Will continue to monitor.
[2018-06-28] MEDS: TRIAMCINOLONE ACE 0.5% CR 15GM TP SCH (20:34)
[2018-06-29 08:30] VITALS: BP 137/46
[2018-06-29] MEDS: TRIAMCINOLONE ACE 0.5% CR 15GM TP SCH ×2 (09:00→20:26)
[2018-06-29] MEDS: HYDROCORTISONE 1% CR 28.35 GM TP SCH ×2 (09:00→20:26)
[2018-06-29] MEDS: ASPIRIN 325 MG ENTERIC COATED PO SCH (09:23)
[2018-06-29] MEDS: METOPROLOL SUCC XL 25 MG TABCR PO SCH (09:23)
[2018-06-29] MEDS: ATORVASTATIN 10 MG TAB PO SCH (09:23)
[2018-06-29] MEDS: NYSTATIN 100,000 U/GM PWD 15GM TP SCH ×2 (09:24→20:25)
--- NOTE | 2018-06-29 15:10 | NUR ---
Physical Therapy Impression Pt tolerated ambulation with FWW x 200' with one sitting rest break after completing up/down 4 steps in rehab dept. Pt on room air with spO2 decreased to 85% after stairs and required approximately 5 minutes to recover to >90%. Pt then ambulated back to recliner on room air and maintained >90% throughout. Nursing notified of increasing edema in B) lower legs and increased SOB with activity today. Nurse indicates that pt has not gained weight recently. Physical Therapy Goals 1. Pt to be modified indep with all bed mobility and supine to/from sit transfers 2. Pt to be modified indep with all sit to/from stand transfers from a variety of surfaces 3. Pt to alana ambulation x 150' with least restrictive device and SBA/Modified indep 4. Pt to alana up/down platform step with least restrictive device and SBA/CGA. Patient's Goals
[2018-06-29 16:00] VITALS: BP 154/44
[2018-06-29] MEDS: APAP/HYDROCODONE 325/5 TAB PO PRN (22:48)
[2018-06-30 08:00] VITALS: BP 125/44
[2018-06-30] MEDS: ATORVASTATIN 10 MG TAB PO SCH (09:30)
[2018-06-30] MEDS: METOPROLOL SUCC XL 25 MG TABCR PO SCH (09:30)
[2018-06-30] MEDS: ASPIRIN 325 MG ENTERIC COATED PO SCH (09:30)
[2018-06-30] MEDS: TRIAMCINOLONE ACE 0.5% CR 15GM TP SCH ×2 (09:31→21:04)
[2018-06-30] MEDS: NYSTATIN 100,000 U/GM PWD 15GM TP SCH ×2 (09:31→21:04)
[2018-06-30] MEDS: HYDROCORTISONE 1% CR 28.35 GM TP SCH ×2 (09:31→21:04)
[2018-06-30 15:36] VITALS: BP 113/37
[2018-07-01 07:30] VITALS: BP 132/46
--- NOTE | 2018-07-01 08:57 | Medical Nutrition Therapy ---
Nutrition Anthropometrics Height (Inches): 64.00 Height (Calculated Centimeters: 162.556513 Weight (Pounds): 199 Weight (Calculated Kilograms): 90.435 BMI: 33.5 Krish Nutrition Score: Adequate Krish Nutrition Risk Score: 16 Dietary Referral Nutrition Risk Factors: Unplanned Loss >10lbs Nutrition Risk Comment: Physical Findings Physical Appearance: Obese BMI 30-39 Skin Appearance Skin Appearance: Edema Edema Location Modifier: Both Edema Location: Arm Type of Edema: Degree of Edema: 1+ Gastrointestinal Symptoms GI Symtoms: Change in Bowel Pattern Tube Present: Bowel Sounds: Recent Bowel Pattern: Stool Characteristics: Nutritional Diagnosis Nutritional Risk Acuity 2: Chronic Renal Failure Nutritional Risk Acuity 3: Fair Appetite Nutritional Risk Acuity 4: Age Related Past Medical History: Venous stasis of dermatitis in both lower extremities, obesity, MACO, edema, HTN, hypercholesterolemia, T2DM, appendectomy, chronic renal failure Nutritional Acuity: 2-Moderate Nutrition Diagnosis: Decreased Nutrient Needs Nutrition Etiology: Physiological Causes Nutrition Problem/Etiology/Sym: decreased Na, protein r/t dx ARF AEB BUN 38, creatinine 1.3 Adjusted Energy Requirement Re: 1720 (Jackson Eckert adj for obesity) Protein Requirement: 70 (.8gm/kg) Fluid Requirement: 2200 (25ml/kg) Diet Type: 2 Gram Sodium (NA), Diabetic Nutrition Intervention: Cont diet as ordered, Encourage intake, HS snack Nutrition Monitoring & Eval Nutrition Goals: Eat 75-100% Meal Nutrition Follow-Up: Fair Intake RD Patient Assessment Time: [address] Assessment Type: RD Re-Assessment Patient Nutrition Acuity: 2-Moderate Follow Up Date: Jul 09, 2018 Nutritional Comment: 2/ Pt admitted s/p bilateral cellulitis to legs with ARF. Pt has 2+ edema BLE. Anticipate wt loss when edema resolved. Pt on diabetic diet,was eating 50-100% of meals on medical unit. BUN cont elevated but declining to 38 from 65, creatintine declined to 1.3 from 2.2. Alb declined to 1.9. BG of 81-130 on medical unit is within desired range. Will offer nutr supplment if intake < 505 or no high protein food ordered. Goal is to provide adquate but not excessive protein r/t ARF. Will cont to monitor and encourage intake. BK 06/24 Pt cont on diabetic diet. Intake average 78%. Pt usually taking a high protein food at meals. Will d.c nutr supplment. Wt up 3# from med floor. BG WNR. Will cont to monitor and encourage intake. BK 07/01 Pt cont on 2gm Na, diabetic diet. BG is within desirabalbe range 96-118. Intake average 70% of small to regular portions. Edema has declined to non-pitting BLE from 2+. No wt loss reported. Will cont to monitor and encourage intake. KVNG LAU Jul 01, 2018 08:57
[2018-07-01] MEDS: ASPIRIN 325 MG ENTERIC COATED PO SCH (09:09)
[2018-07-01] MEDS: NYSTATIN 100,000 U/GM PWD 15GM TP SCH ×2 (09:10→21:32)
[2018-07-01] MEDS: HYDROCORTISONE 1% CR 28.35 GM TP SCH ×2 (09:10→21:00)
[2018-07-01] MEDS: ATORVASTATIN 10 MG TAB PO SCH (09:10)
[2018-07-01] MEDS: METOPROLOL SUCC XL 25 MG TABCR PO SCH (09:10)
[2018-07-01] MEDS: TRIAMCINOLONE ACE 0.5% CR 15GM TP SCH ×2 (09:11→21:32)
--- NOTE | 2018-07-01 13:56 | NUR ---
Occupational Therapy Impression Mod (I) ambulation x300ft with no loss of balance and good tolerance. Independent LB dressing. Pt adamantly refusing further ADLs/IADLs. Pt nearing OT goals. Occupational Therapy Goals 1. Pt. to perform dressing activities with Min A. 2. Pt. to perform toileting activities with Mod I. 3. Pt. to perform light meal prep with I. 4. Pt. to perform "sponge bath" with Min A. Patient's Goal
[2018-07-01 15:00] VITALS: BP 126/33
--- NOTE | 2018-07-01 15:04 | NUR ---
Physical Therapy Impression Pt performed 2 sit<>supine transfers each time requiring Min A. Attempted to educate Pt on use of leg principal archaeologist to assist with sit>supine. Pt not interested in using a leg principal archaeologist and states her son will assist her with her legs into bed. Pt demonstrates Mod I with transfers and gait using a RW x 150'. Physical Therapy Goals 1. Pt to be modified indep with all bed mobility and supine to/from sit transfers 2. Pt to be modified indep with all sit to/from stand transfers from a variety of surfaces 3. Pt to alana ambulation x 150' with least restrictive device and SBA/Modified indep 4. Pt to alana up/down platform step with least restrictive device and SBA/CGA. Patient's Goals
[2018-07-02 08:51] VITALS: BP 148/42
[2018-07-02] MEDS: METOPROLOL SUCC XL 25 MG TABCR PO SCH (08:52)
[2018-07-02] MEDS: ATORVASTATIN 10 MG TAB PO SCH (08:52)
[2018-07-02] MEDS: ASPIRIN 325 MG ENTERIC COATED PO SCH (08:52)
[2018-07-02] MEDS: APAP/HYDROCODONE 325/5 TAB PO PRN (08:57)
[2018-07-02] MEDS: HYDROCORTISONE 1% CR 28.35 GM TP SCH ×2 (09:00→21:00)
[2018-07-02] MEDS: TRIAMCINOLONE ACE 0.5% CR 15GM TP SCH ×2 (09:00→21:00)
[2018-07-02] MEDS: NYSTATIN 100,000 U/GM PWD 15GM TP SCH ×2 (09:00→21:00)
--- NOTE | 2018-07-02 11:39 | PT ECF NOTE ---
Type of Note: Discharge Note Primary Medical Diagnosis: Rhabdomyolysis, Bilateral LE's cellulitis; Circumferential open wounds to B) lower legs Physical Therapy Evaluation Date: 06-18-18 SUBJECTIVE: Prior Hospitalization: Pt. was on [facility] medical floor from 06-15-18 to 06-18-18. Prior Level of Function: Independent with all IADL's with some assistance from son. Pt. states that at baseline, she only "sponge bathes" at home. Prior Living Status: Single level house Community Services: None utilized prior to admission; aware of [facility] services for nail care in the future. Home Accessibility: One step into home Equipment Owned: [place] Medical Complications/Past Medical History: Please refer to chart for details. Psychosocial Support: Supportive son who resides locally. Pain Scale (0-10): None stated during initial evaluation. OBJECTIVE: Strength: 4+/5 overall ROM: (please note any abnormalities) WNL Sensation: (please note any abnormalities) No paresthesias reported Other Neuro findings: n/a Bed Mobility: Modified indep. Assistive device: Transfers: Modified indep Assistive Device: Front wheeled walker Gait: Modified indep Assistive device: Front wheeled walker Stairs: Up/down platform step with rail and SBA/Modified indep; Alana up/down 4 steps with rail and SBA/CGA Assistive device: Single rail Timed Up and Go (>12 seconds indicated increased risk for falls): 06/19/18: 1 min 54 seconds. 06/28/18: 38 seconds (Improved by 76 sec) 10 meter walk test (0.6m/second cannot function independently): n/a Other Objective Measures: n/a ASSESSMENT: Pt. is a 82 year old female, who resides alone, in [place], who was admitted to [facility] medical floor (on 06/15/18) following a fall at home in which she was unable to get up from for 12 hrs. until son arrived and called EMT's. Pt. was diagnosed with rhabdomyolysis, bilateral cellulitis of lower legs and a NonsteMI. Pt. also has a history of DM Type II, obstructive sleep apnea and obesity. Pt has improved with functional mobility, improved balance and safety. LE circumferential wounds are significantly improved such that they can now be managed with [facility] nursing services in the home environment. Pt would benefit from further PT as well for transition to her home situation and ensure safety with bathroom mobility and/or sponge bathing functionally. Problem List/Current Limitations: Pt will continue to require assistance to manage skin and wound care to ensure no further complications until fully healed. Short Term Goals: (Met) 1. Pt to be modified indep with all bed mobility and supine to/from sit transfers 2. Pt to be modified indep with all sit to/from stand transfers from a variety of surfaces 3. Pt to alana ambulation x 150' with least restrictive device and SBA/Modified indep 4. Pt to alana up/down platform step with least restrictive device and SBA/CGA. 5. Wounds to demo 100% granulation tissue with no further debridement needs, such that nursing can manage dressing changes. [facility] Goals: Pt to return home with appropriate level of assistance available. Patient Goals: Return home Rehabilitation Prognosis: Good Barriers for Discharge: Pt will continue to require assistance to manage skin and wound care to ensure no further complications until fully healed. PLAN: Discharge home tomorrow with [facility] services in place. Thank you for this referral. If you have any questions, concerns, or comments about this report or plan, please contact me at . H. Adrienne Kamara, PT, MPT, OMS MTDD
--- NOTE | 2018-07-02 12:31 | NUR ---
Occupational Therapy Impression Independent supine to sit. Mod (I) toileting. Independent hand hygiene sink front. Mod (I) ambulation in room with RW. Pt adamantly refusing to wear supplemental daytime oxygen. SpO2 80% on room air with activity. Pt reports desire to discharge home tomorrow at current level of function with no further questions/concerns. Occupational Therapy Goals 1. Pt. to perform dressing activities with Min A. 2. Pt. to perform toileting activities with Mod I. 3. Pt. to perform light meal prep with I. 4. Pt. to perform "sponge bath" with Min A. Patient's Goal
--- NOTE | 2018-07-02 12:42 | OT ECF NOTE ---
Type of Note: Discharge Note Primary Medical Diagnosis: Rhabdomyolysis, Bilateral LE's cellulitis. Occupational Therapy Evaluation Date: 06-18-18 SUBJECTIVE: Prior Hospitalization: Pt. was on [facility] medical floor from 06-15-18 to 06-18-18. Prior Level of Function: Independent with all IADL's with some assistance from son. Pt. states that at baseline, she only "sponge bathes" at home. Prior Living Status: Single level house Community Services: None utilized prior to admission. Home Accessibility: One step into home Equipment Owned: Cane, Toilet riser. Refusing recommendation for RW or bed rail Medical Complications/Past Medical History: Please refer to chart for details. Psychosocial Support: Supportive son. Pain Scale (0-10): None stated during initial evaluation. OBJECTIVE: Strength: MMT: Right Left Shoulder Flexion WFL WFL Elbow Flexion WFL WFL Wrist Extension WFL WFL Jukebox Routeman WFL WFL (5= normal, 4= good, 3= fair, 2= poor, 1= trace) Functional Transfer: Assistive Device: Front wheeled walker-Refused RW at home, reports plans for furniture crawling Transfer Ability: Modified Independent. Pt adamantly refusing to don supplemental O2 during daytime. SpO2 80% on room air with activity during daytime at last OT visit (07/02/18). Pt educated on importance of supplemental O2, verbalized understanding but continues to report she will not don it at home. ADL: Upper body dressing: Assistive device: None Upper body dressing ability: Independent Lower body dressing: Assistive device: None-Educated on vp organizational development to increase efficiency with LB dressing able to complete without. Lower body dressing ability: Independent Toileting: Assistive device: Raised toilet seat Toileting ability: Modified Independent Grooming/hygiene: Assistive device: Standing Grooming ability: Independent Bathing: Assistive device: None Bathing ability: Demonstrates independence for sponge baths as she completes at home Standardized Assessment: Stanley Index of Activities of Daily Living- Pt. scored a 8/20 on this Index upon initial evaluation. / upon discharge (07/02/18) ASSESSMENT: Pt. is a 82 year old female, who resides alone, in [place], who was admitted to [facility] medical floor (on 06/15/18) following a fall at home in which she was unable to get up from for 12 hrs. until son arrived and called EMT's. Pt. was diagnosed with rhabdomyolysis, bilateral cellulitis of lower legs and a NonsteMI. Pt. also has a history of DM Type II, obstructive sleep apnea and obesity. Pt. has met all skilled OT goals that she is agreeable to address. She desires to discharge home tomorrow at current level of function with no further questions/concerns to be addressed with OT. Short Term Goals: 1. Pt. to perform dressing activities with Min A. GOAL MET 2. Pt. to perform toileting activities with Mod I. GOAL MET 3. Pt. to perform light meal prep with I. Goal not addressed-pt refused 4. Pt. to perform "sponge bath" with Min A. GOAL MET Ceramic Engineer Goals: Return home with HH care. Patient Goals: Return home Rehabilitation Prognosis: Fair Barriers to Discharge: Resides alone, advanced age, wounds on Bilateral LE's. PLAN: The pt will discharge home with HH services and assist from family. Thank you for this referral. If you have any questions, concerns, or comments about this report or plan, please contact me at . Roya Wong MS, OTR/L Occupational Therapy [facility]
--- NOTE | 2018-07-02 12:44 | NUR ---
OCCUPATIONAL THERAPY Dressing Assistance: Independent Dressing Aid Required: Educated on use of auto heater mechanic for LB dressing to improve energy conservation and ease. Pt able to complete without AE with increased time Bathing Assistance: Set-up Bathing Equipment: Pt reports completing sponge baths at baseline Home Assessment: Not Completed-Pt refused Feeding Assistance: Independent Feeding Specialized Equipment: None Toilet Use: Modified I/ AE Verbalizes Needs: Yes Understands Precautions: Occasionally, refusing to don supplemental O2 during daytime when SpO2 is at 80% with activity. Cooperative: Yes Family Teaching: No Occupational Therapy Comment:
[2018-07-02 19:11] VITALS: BP 135/54
[2018-07-03 07:30] VITALS: BP 124/43
[2018-07-03 07:43] LABS: PLATELET COUNT, AUTOMATED 192 K/uL (150-450)
[2018-07-03] MEDS: METOPROLOL SUCC XL 25 MG TABCR PO SCH (08:33)
[2018-07-03] MEDS: TRIAMCINOLONE ACE 0.5% CR 15GM TP SCH (08:33)
[2018-07-03] MEDS: ASPIRIN 325 MG ENTERIC COATED PO SCH (08:33)
[2018-07-03] MEDS: ATORVASTATIN 10 MG TAB PO SCH (08:33)
[2018-07-03] MEDS: NYSTATIN 100,000 U/GM PWD 15GM TP SCH (09:00)
[2018-07-03] MEDS: HYDROCORTISONE 1% CR 28.35 GM TP SCH (09:00)
--- NOTE | 2018-07-03 11:04 | NUR ---
DC MDS completed with pt. C: 15, D: 03, E: no concerns, Q: pt expects to DC to community, referral made for [facility] at [place].
[2018-07-03] MEDS ORDERED: TRI05T TP (13:43)
[2018-07-03] MEDS ORDERED: ASPI-764 PO (13:43)
[2018-07-03] MEDS ORDERED: ACET-2007 PO (13:43)
--- NOTE | 2018-07-03 13:54 | Hospitalist Depart ---
Discharge Summary Reason for Hosp/Final Diag: (1) Bilateral cellulitis of lower leg Status: Acute Hospital Course & Plan: She was placed on treatment for bilateral cellulitis. She completed her course of antibiotics. Her cultures were negative. (2) Venous stasis dermatitis of both lower extremities Status: Chronic Hospital Course & Plan: She was followed by the wound care team while on ECF. She will continue with wound care through Home Health at discharge. (3) Non-ST elevated myocardial infarction (non-STEMI) Status: Acute Hospital Course & Plan: She did have a slight increase of her troponin, but her EKG showed no acute changes. She was started on a regular aspirin and meto prolol. An echocardiogram showed no wall motion abnormalities and a normal EF. (4) Acute on chronic renal failure Status: Acute Hospital Course & Plan: Her renal function improved with IV fluids and holding diuretics to 1.2. Her diuretic was not restarted. (5) Type II diabetes mellitus Status: Chronic Hospital Course & Plan: She had not been on chronic medications. She was placed on sliding scale level #1 but she did not require dosing while on ECF. (6) Hypertension, benign Status: Chronic Hospital Course & Plan: Her beta rg was continued. Her ARB and diuretic were stopped as her BP was nicely controlled without them and her renal function was improved off of these meds as well. (7) Hypercholesterolemia Status: Chronic Hospital Course & Plan: Continue atorvastatin. Departure Weight (Pounds): 199 Weight (Ounces): 6.0 Result Diagram: 07/03/18 0656 07/03/18 0656 Item Value Date Time Whole Blood Glucose 96 mg/DL 06/18/18 1217 Whole Blood Glucose 118 mg/DL H 06/19/18 0746 Whole Blood Glucose 112 mg/DL H 06/19/18 1213 Random Glucose 83 mg/dl 06/26/18 0535 Random Glucose 74 mg/dl L 07/03/18 0656 Condition: Improved PT/OT Follow Up For: PT For Strengthening, OT For ADL's Home Health RN Follow Up For: Nursing Assessment, Wound Care Time Spent: < 30 min Discharge Instructions Home Meds Active Scripts Triamcinolone Acet 0.5% (TRIAMCINOLONE ACETONIDE 0.5%) 15 Gm Cr, 1 BRE TP BID, #30 G Apply to affected areas bid. Prov:EVE OSWALD MD 07/03/18 Acetaminophen (MAPAP) 325 Mg Tablet, 650 MG PO Q6H PRN for PAIN OR FEVER 100 OR GREATER, #100 TAB Prov:EVE OSWALD MD 07/03/18 Aspirin (ASPIRIN EC) 325 Mg Tablet.dr, 325 MG PO QDAY, #90 TAB Prov:EVE OSWALD MD 07/03/18 Atorvastatin Calcium (ATORVASTATIN CALCIUM) 10 Mg Tablet, 1 TAB PO DAILY for to lower cholesterol. , #90 TAB 3 Refills Prov:TRENA CALDWELL MD 06/04/18 Metoprolol Succinate (METOPROLOL SUCCINATE) 25 Mg Tab.er.24h, 1 TAB PO QDAY for to slow heart rate., #90 TAB 3 Refills Prov:TRENA CALDWELL MD 06/04/18 Discontinued Reported Medications Aspirin (ASPIR 81) 81 Mg Tablet.dr, 1 TAB PO QDAY, TAB 06/08/14 Discontinued Scripts Losartan Potassium (LOSARTAN POTASSIUM) 50 Mg Tablet, 1 TAB PO QDAY, #90 TAB 3 Refills Prov:TRENA CALDWELL MD 06/04/18 Spironolact/Hydrochlorothiazid (SPIRONOLACTONE-HCTZ 25-25 TAB) 1 Each Tablet, 0.5 EACH PO QDAY, #45 TAB 3 Refills Prov:TRENA CALDWELL MD 06/03/18 Follow up Referrals: Internal Medicine - In Two Weeks @ [facility]-Primary with TRENA CALDWELL MD Diet: Diabetic Activity: As Tolerated Copies to: TRENA CALDWELL MD ; Venous Thromboembolism Antithrombotics Is Pt On Any Antithrombotics?: Yes (Aspiring 325mg daily.) Tgfr-uv-Bzpt Certification Face to Face Home Health Certification Patient's Primary Care Provider: Trena Caldwell MD Institutional Provider conducted the itmd-ak-ieqo encounter. Electronic Undersigning Physician Certifies Home Health. I certify that the patient has been under my care and that I had a wmzs-dk-ygrd encounter that meets the physician cosw-zp-vbzf encounter requirements with this patient. This patient is home-bound due to safety issues and continues to require assistance with ADL's. I certify that based on my findings, that Nursing, Aides and the following Home Health services are medically necessary: PT, OT, Wound care Medical Necessity: Nursing, Rehab Date Face to Face Conducted: Jul 03, 2018 EVE OSWALD MD Jul 03, 2018 13:53
== END 2018-07-03 16:00 | disposition home health service (06) | DRG 603 ==
LOC: ECF 10:45
PROVIDERS: ADMIT Family Medicine; ATTEND Family Medicine
PROC: 0JDP3ZZ Extraction of Left Lower Leg Subcutaneous Tissue and Fascia, Percutaneous Approach (ICD-10-PCS; principal; 2018-06-18)
PROC: 0JDN3ZZ Extraction of Right Lower Leg Subcutaneous Tissue and Fascia, Percutaneous Approach (ICD-10-PCS; 2018-06-18)
PROC: 0JDP3ZZ Extraction of Left Lower Leg Subcutaneous Tissue and Fascia, Percutaneous Approach (ICD-10-PCS; 2018-06-21)
PROC: 0JDN3ZZ Extraction of Right Lower Leg Subcutaneous Tissue and Fascia, Percutaneous Approach (ICD-10-PCS; 2018-06-21)
PROC: 0JDN3ZZ Extraction of Right Lower Leg Subcutaneous Tissue and Fascia, Percutaneous Approach (ICD-10-PCS; 2018-06-27)
PROC: 0HDLXZZ Extraction of Left Lower Leg Skin, External Approach (ICD-10-PCS; 2018-06-27)
PROC: 0HDLXZZ Extraction of Left Lower Leg Skin, External Approach (ICD-10-PCS; 2018-06-28)
PROC: 0HDKXZZ Extraction of Right Lower Leg Skin, External Approach (ICD-10-PCS; 2018-06-28)
PROC: 0HDKXZZ Extraction of Right Lower Leg Skin, External Approach (ICD-10-PCS; 2018-07-02)
DX: L03.116 Cellulitis of left lower limb (principal); L03.115 Cellulitis of right lower limb; I87.8 Other specified disorders of veins; E11.9 Type 2 diabetes mellitus without complications; I10 Essential (primary) hypertension; E78.00 Pure hypercholesterolemia, unspecified; Z66 Do not resuscitate
CPT/HCPCS: 36415; 36416; 80202; 82040; 82247; 82310; 82374; 82435; 82565; 82947; 82948; 84075; 84132; 84155; 84295; 84450; 84460; 84520; 85025; 97161; 97163; 97165; J0692; J3370

== ENCOUNTER → 2018-07-30 | Outpatient (CLI) | payer MEDICARE ==
[2018-06-16 09:59] VITALS: BMI 33.5
[~2018-07-30] MED LIST changes: +ACET-2007 PO; +ASPI-764 PO; +CHOL200074 PO; +FURO-45 PO; +POTA20TA94 PO
== END ==
LOC: LAB 15:03
PROVIDERS: ATTEND Emergency Medicine
DX: E83.51 Hypocalcemia (principal); I10 Essential (primary) hypertension
CPT/HCPCS: 36415; 82306; 82310; 82374; 82435; 82565; 82947; 84132; 84295; 84520

== ENCOUNTER → 2018-08-09 | Outpatient (REF) | payer MEDICARE ==
[2018-06-16 09:59] VITALS: BMI 33.5
== END ==
LOC: ZZLCC 12:58
PROVIDERS: ATTEND Nurse Practitioner Family
DX: R60.9 Edema, unspecified (principal)
CPT/HCPCS: 82310; 82374; 82435; 82565; 82947; 84132; 84295; 84520

== ENCOUNTER → 2018-08-16 | Outpatient (CLI) | payer MEDICARE ==
[2018-06-16 09:59] VITALS: BMI 33.5
[~2018-08-16] MED LIST changes: +METO50TA19 PO
== END ==
LOC: LAB 10:31
PROVIDERS: ATTEND Emergency Medicine
DX: I10 Essential (primary) hypertension (principal)
CPT/HCPCS: 36415; 82310; 82374; 82435; 82565; 82947; 84132; 84295; 84520

== ENCOUNTER → 2018-09-13 | Outpatient (CLI) | payer MEDICARE ==
[2018-06-16 09:59] VITALS: BMI 33.5
[2018-09-13 11:19] LABS: PLATELET COUNT, AUTOMATED 220 K/uL (150-450)
== END ==
LOC: LAB 10:54
PROVIDERS: ATTEND Emergency Medicine
DX: I12.9 Hypertensive chronic kidney disease with stage 1 through stage 4 chronic kidney disease, or unspecified chronic kidney disease (principal); N18.9 Chronic kidney disease, unspecified; E11.9 Type 2 diabetes mellitus without complications
CPT/HCPCS: 36415; 82306; 82310; 82374; 82435; 82565; 82607; 82947; 83036; 83540; 83550; 84132; 84295; 84439; 84443; 84520; 85025

== ENCOUNTER → 2018-10-01 | Outpatient (CLI) | payer MEDICARE ==
[2018-06-16 09:59] VITALS: BMI 33.5
[~2018-10-01] MED LIST changes: +CHOL100052 PO; +CYA1000 PO; +FERR324T16 PO; +IOPAMIDOL 76% 150 ML INFUS BTL 150 ML ONE; +LEVO25TA61 PO; +NS(*) 0.9% 50 ML BAG 50 ML ONE
--- NOTE | 2018-10-01 10:54 | EKG ---
FACILITY: [facility] [place] PATIENT NAME: PERICO MCFADDEN : [id number] MR: [id number] V: [id number] EXAM DATE: ORDERING PHYSICIAN: ARTURO CALDWELL TECHNOLOGIST: DOREEN FELICIANO Test Reason : IRREGULAR HEARTBEAT Blood Pressure : / mmHG Vent. Rate : 086 BPM Atrial Rate : 312 BPM P-R Int : 000 ms QRS Dur : 080 ms QT Int : 388 ms P-R-T Axes : 000 038 034 degrees QTc Int : 464 ms Atrial flutter with variable AV block Anterior infarct , age undetermined Abnormal ECG No previous ECGs available Confirmed by ARTURO CALDWELL ([id number]) on 10/02/2018 2:15:01 PM Referred By: Confirmed By:ARTURO CALDWELL
--- NOTE | 2018-10-01 13:35 | RADIOLOGY IMAGING REPORT ---
FACILITY: [facility] [place] PATIENT NAME: Aliza Meadows : 1935 MR: [id number] V: [id number] EXAM DATE: ORDERING PHYSICIAN: ARTURO CALDWELL TECHNOLOGIST: Location: [facility] Patient: Aliza Meadows : 1935 Visit/Account:[id number] Date of Sevice: 10/01/2018 EXAMINATION: CT chest angiogram HISTORY: Hypoxia TECHNIQUE: CT angiogram was obtained through the chest with intravenous contrast. Sagittal and cor onal MPR and MIP coronal reformations were generated. 75 mL isovue 370 was injected. One of the following dose optimization techniques was utilized in the performance of this exam: autom ated exposure control; adjustment of the mA and/or kV according to patient size; or use of iterative reconstruction technique. Specific details can be referenced in the facility's radiology CT exam ope rational policy. COMPARISON: Chest radiograph June 15, 2018 FINDINGS: Lower neck: Heterogeneous thyroid gland. Heart / pericardium/aorta/great vessels: Mildly enlarged heart. Left ventricular hypertrophy. Othe rwise normal for age. Mediastinum: Normal. Lymph node assessment: Normal. Pleura: Moderate to large right and mhxab-xl-fjbptqaf sized left pleural effusions. Pulmonary arteries/pulmonary arterial vascular tree: No pulmonary embolus identified.. Lungs: Small patch of nodular scarring or subsegmental atelectasis in the left lower lobe, axial ashtyn ge 62. Left lower lobe 4 mm probable nodular atelectasis, axial image 55. Right lower lobe compress audra atelectasis adjacent to the right pleural fluid. Upper abdomen: Normal. Chest wall: Normal. Musculoskeletal: Thoracic spine idiopathic skeletal hyperostosis. IMPRESSION: 1. No pulmonary embolus. 2. Moderate to large right and small to moderate-sized left pleural effusions. 3. Left ventricular hypertrophy may reflect chronic hypertension, correlate with history/exam. Report Dictated By: Sid Estrada MD at 10/01/2018 1:23 PM Report E-Signed By: Sid Estrada MD at 10/01/2018 1:30 PM WSN:[facility]
[2018-10-01 14:46] LABS: INR 1.12
--- NOTE | 2018-10-02 23:46 | RT HOLTER TEST ---
FACILITY: [facility] [place] PATIENT NAME: PERICO MCFADDEN : [id number] MR: [id number] V: [id number] EXAM DATE: ORDERING PHYSICIAN: ARTURO CALDWELL TECHNOLOGIST: ASIF Hook-up date: 2018-10-01 14:30:00 Duration: 23:50:00 Test Indications: Atrial Flutter Medications: N/A 48127 QRS complexes 16 Ventricular ectopics which represent <1 % of total QRS comp. 818 Supraventricular ectopics which represent <1 % of total QRS comp. * Paced QRS complexes which represent % of total QRS comp. VENTRICULAR ECTOPY 16 Isolated 0 Bigeminal Cycles 0 Couplets 0 Runs 0 Beats in Runs * Beats LONGEST at * BPM at :: -- * Beats FASTEST at * BPM at :: -- SUPRAVENTRICULAR ECTOPY 516 Isolated 93 Couplets 34 Runs 116 Beats in Runs 6 Beats LONGEST at 105 BPM at 01:36:02 2018-10-02 3 Beats FASTEST at 144 BPM at 15:12:23 2018-10-01 HEART RATES 43 MIN at 07:19:38 2018-10-02 68 AVG 144 MAX at 15:26:49 2018-10-01 LONGEST RR 1.768 secs at 07:19:31 2018-10-02 S-T LEVELS Channel 1 -12.800 mm MIN at 14:30:00 2018-10-01 -12.800 mm MAX at 14:30:00 2018-10-01 Channel 3 -12.800 mm MIN at 14:30:00 2018-10-01 -12.800 mm MAX at 14:30:00 2018-10-01 There were no reported symptoms. The patient was in a sinus rhythm and atrial flutter during the philip t. It is difficult to determine percentages of time in each rhythm. There was rare ventricular ectopy. Confirmed by NADIRA ADAMS ([id number]) on 10/02/2018 11:45:47 PM Referred By: Overread By: NADIRA ADAMS
== END ==
LOC: RESP 10:46
PROVIDERS: ATTEND Emergency Medicine
DX: I48.92 Unspecified atrial flutter (principal)
CPT/HCPCS: 36415; 71275; 84484; 85379; 85610; 93225; J7050; Q9967

== ENCOUNTER 2018-10-08 00:18 | Outpatient (RCR) | payer MEDICARE ==
[2018-06-16 09:59] VITALS: BMI 33.5
[~2018-10-08 00:18] MED LIST changes: -IOPAMIDOL 76% 150 ML INFUS BTL 150 ML ONE; -NS(*) 0.9% 50 ML BAG 50 ML ONE
--- NOTE | 2018-10-08 14:08 | RADIOLOGY IMAGING REPORT ---
FACILITY: [facility] - [place] PATIENT NAME: Aliza Meadows : 1935 MR: [id number] V: [id number] EXAM DATE: ORDERING PHYSICIAN: ARTURO CALDWELL TECHNOLOGIST: Location: [facility] [place] Patient: Aliza Meadows : 1935 Visit/Account:[id number] Date of Sevice: 10/08/2018 XR CHEST SPECIAL VIEW HISTORY: Status post thoracentesis. COMPARISON: CT chest October 01, 2018. FINDINGS: Cardiomediastinal contours: The heart size is normal. Lungs and pleura: There has been a recent thoracentesis presumably on the right side where the pleura l effusion was larger. The results in chest x-ray shows residual bilateral pleural effusions and no pneumothorax. There is no discrete infiltrate. Bones/soft tissues: There are no findings of a fracture. IMPRESSION: 1. Comparison the previous CT scan shows that there has been interval decrease in the previously not ed right-sided pleural effusion consistent with a history of recent thoracentesis. 2. No pneumothorax. 3. Residual small bilateral pleural effusions of uncertain etiology. Report Dictated By: Tre Gillette MD at 10/08/2018 2:02 PM Report E-Signed By: Tre Gillette MD at 10/08/2018 2:04 PM WSN:[email or web address]
--- NOTE | 2018-10-08 17:55 | RADIOLOGY IMAGING REPORT ---
FACILITY: [facility] [place] PATIENT NAME: Aliza Meadows : 1935 MR: [id number] V: [id number] EXAM DATE: ORDERING PHYSICIAN: ARTURO CALDWELL TECHNOLOGIST: Location: [facility] Patient: Aliza Meadows : 1935 Visit/Account:[id number] Date of Sevice: 10/08/2018 Exam type: THORACENTESIS History: Pleural Effusion Comparison: CT of the chest October 01, 2018. Findings: Informed consent was obtained. The posterior aspect of the patient's right thorax was prepped and dr aped usual sterile fashion. Local anesthesia was accomplished with 1% lidocaine.. Utilizing sonogra phic guidance a thoracentesis catheter was advanced percutaneously into the pleural space. Approxima tely 410 mL of straw-colored fluid was aspirated from the right pleural cavity. Postprocedure chest radiograph demonstrated no evidence of a pneumothorax. The procedure was accomplished without appare nt complication IMPRESSION: 1. Successful sonographically guided right-sided thoracentesis Report Dictated By: Jessica Miller MD at 10/08/2018 5:49 PM Report E-Signed By: Jessica Miller MD at 10/08/2018 5:51 PM WSN:[email or web address]
[2018-10-11] MEDS ORDERED: SPIR25TA80 PO (13:49)
[2018-10-16] MEDS ORDERED: SPIR50TA33 PO (16:04)
== END 2018-10-08 18:00 | disposition home or self-care (01) ==
LOC: US 00:18
PROVIDERS: ATTEND Emergency Medicine
DX: Z01.818 Encounter for other preprocedural examination (principal); J90 Pleural effusion, not elsewhere classified
CPT/HCPCS: 32555; 71046; 82150; 82945; 83615; 83986; 84157; 87071; 87073; 87205; 88104; 88305; 89050; A7048

== ENCOUNTER → 2018-10-09 | Outpatient (CLI) | payer MEDICARE ==
[2018-06-16 09:59] VITALS: BMI 33.5
[~2018-10-09] MED LIST changes: +SPIR25TA80 PO
== END ==
LOC: LAB 14:24
PROVIDERS: ATTEND Emergency Medicine
DX: J90 Pleural effusion, not elsewhere classified (principal)
CPT/HCPCS: 36415; 82040; 82247; 82310; 82374; 82435; 82565; 82947; 83615; 84075; 84132; 84155; 84295; 84450; 84460; 84520

== ENCOUNTER → 2018-10-16 | Outpatient (CLI) | payer MEDICARE ==
[2018-06-16 09:59] VITALS: BMI 33.5
[~2018-10-16] MED LIST changes: +SPIR50TA33 PO
== END ==
LOC: LAB 11:54
PROVIDERS: ATTEND Emergency Medicine
DX: N18.9 Chronic kidney disease, unspecified (principal)
CPT/HCPCS: 36415; 82310; 82374; 82435; 82565; 82947; 83880; 84132; 84295; 84520

== ENCOUNTER → 2018-11-06 | Outpatient (CLI) | payer MEDICARE ==
[2018-06-16 09:59] VITALS: BMI 33.5
== END ==
LOC: LAB 14:27
PROVIDERS: ATTEND Emergency Medicine
DX: E55.9 Vitamin D deficiency, unspecified (principal); N18.9 Chronic kidney disease, unspecified
CPT/HCPCS: 36415; 82306; 82310; 82374; 82435; 82565; 82947; 84132; 84295; 84520

== ENCOUNTER → 2018-11-25 | Outpatient (CLI) | payer MEDICARE ==
[2018-06-16 09:59] VITALS: BMI 33.5
== END ==
LOC: LAB 11:23
PROVIDERS: ATTEND Emergency Medicine
DX: R60.9 Edema, unspecified (principal)
CPT/HCPCS: 36415; 82310; 82374; 82435; 82565; 82947; 84132; 84295; 84520

== ENCOUNTER → 2018-12-22 | Outpatient (CLI) | payer MEDICARE ==
[2018-06-16 09:59] VITALS: BMI 33.5
== END ==
LOC: AMB 12:09
PROVIDERS: ATTEND Nurse Practitioner
DX: R41.82 Altered mental status, unspecified (principal); R29.810 Facial weakness; R53.1 Weakness
CPT/HCPCS: A0425; A0427

== ENCOUNTER → 2018-12-22 | Emergency (ER) | payer MEDICARE ==
[2018-06-16 09:59] VITALS: Wt 81.6 kg
[~2018-12-22] MED LIST changes: +IOPAMIDOL 76% 100 ML INFUS BTL 0 ML ONE; +NS(*) 0.9% 50 ML BAG 0 ML ONE; +ONDANSETRON 4 MG/2 ML VIAL IVP PRN
[2018-12-22 13:15] LABS: PLATELET COUNT, AUTOMATED 214 K/uL (150-450)
--- NOTE | 2018-12-22 13:24 | RADIOLOGY IMAGING REPORT ---
FACILITY: [facility] [place] PATIENT NAME: Aliza Meadows : 1935 MR: [id number] V: [id number] EXAM DATE: ORDERING PHYSICIAN: ASIA BAUER TECHNOLOGIST: Location: [facility] [place] Patient: Aliza Meadows : 1935 Visit/Account:[id number] Date of Sevice: 12/22/2018 EXAMINATION: CT Head without intravenous contrast HISTORY: Right hemiparesis. TECHNIQUE: Axial images were obtained from the skull base to the vertex without intravenous contrast . Sagittal and coronal reformatted images are also submitted. One of the following dose optimization techniques was utilized in the performance of this exam: Autom ated exposure control; adjustment of the mA and/or kV according to the patient's size; or use of an i terative reconstruction technique. Specific details can be referenced in the facility's radiology C T exam operational policy. COMPARISON: Noncontrast head CT dated 06/15/2018. FINDINGS: Brain volume: Normal. Ventricles: Negative. Acute ischemic changes: None. Hemorrhage: None. Masses / edema: None. Alegria-white: Negative. White matter: Negative. Vessels: Calcified plaque in the carotid siphons and vertebral arteries. Normal density in the dural venous sinuses. Mild hyperdensity in the left internal carotid artery terminus and a left M2 branch suspicious for thrombus or embolus given the symptoms. Extra-axial: Negative. Calvarium / skull base: Negative. Visualized sinuses / orbits: Bilateral temporomandibular joint arthritis. IMPRESSION: Mild hyperdensity in the left internal carotid artery terminus and a left M2 branch suspi cious for thrombus or embolus given the right-sided symptoms. No definite acute infarction on the non contrast head CT. No acute intracranial hemorrhage. Noncontrast head CT results were called to Dr. Nuñez at 12/22/2018 1:11 PM. Report Dictated By: Asia Cruz MD at 12/22/2018 1:05 PM Report E-Signed By: Asia Cruz MD at 12/22/2018 1:17 PM WSN:[email or web address]
--- NOTE | 2018-12-22 13:33 | RADIOLOGY IMAGING REPORT ---
FACILITY: [facility] [place] PATIENT NAME: Aliza Meadows : 1935 MR: [id number] V: [id number] EXAM DATE: ORDERING PHYSICIAN: ASIA BAUER TECHNOLOGIST: [facility] Patient: Aliza Meadows : 1935 Visit/Account:[id number] Date of Sevice: 12/22/2018 EXAMINATION: Portable AP Chest HISTORY: Stroke symptoms. COMPARISON: 10/08/2018. FINDINGS: Mild chronic appearing interstitial changes bilaterally. There is a likely small right pleural effus ion with adjacent right basilar atelectasis, improved from the prior exam. The prior left pleural ef fusion has resolved. The left costophrenic angle is sharp. No new suspicious consolidation. No pne umothorax. Stable cardiomediastinal silhouette with borderline cardiac enlargement. IMPRESSION: 1. Small right pleural effusion with mild right basilar atelectasis, improved from prior. 2. The prior left pleural effusion has resolved. 2. Mild chronic appearing interstitial changes. Report Dictated By: Maxime Ryan MD at 12/22/2018 1:21 PM Report E-Signed By: Maxime Ryan MD at 12/22/2018 1:24 PM WSN:[email or web address]
[2018-12-22 13:40] VITALS: BP 185/100
[2018-12-22 13:42] LABS: INR 1.03
--- NOTE | 2018-12-22 13:54 | EKG ---
FACILITY: [facility] PATIENT NAME: PERICO MCFADDEN : [id number] MR: [id number] V: [id number] EXAM DATE: ORDERING PHYSICIAN: ASIA BAUER TECHNOLOGIST: HAJA Test Reason : STROKE Blood Pressure : / mmHG Vent. Rate : 075 BPM Atrial Rate : 075 BPM P-R Int : 166 ms QRS Dur : 080 ms QT Int : 396 ms P-R-T Axes : 070 047 058 degrees QTc Int : 442 ms Sinus rhythm with occasional premature ventricular complexes Otherwise normal ECG Confirmed by EVE CAPONE ([id number]) on 12/22/2018 6:13:30 PM Referred By: JOSSUE Confirmed By:EVE CAPONE
--- NOTE | 2018-12-22 14:30 | ER Report ---
History and Physical Time Seen By MD: 12:37 HPI/ROS 83-year-old female with past medical history of hypertension, and STEMI on aspirin, CK D who presents brought in by EMS to concern for new onset right- sided weakness. Patient was reportedly found down on the sidewalk in front of her house by a neighbor. Per EMS, extremely slurred speech, left gaze deviation, and right upper and lower chin as he paralysis. She was placed in a c-collar and brought to the emergency department for further evaluation. Fingerstick glucose at scene was within normal limits. Extensive attempts at obtaining additional collateral including discussion with son regarding the patient's last seen normal was unsuccessful. He son last saw her yesterday afternoon but there were no eye witnesses and she did not have any conversations with anybody this morning and therefore last seen normal was unclear. On arrival, the patient is unable to provide any additional information secondary to acuity of condition. Remainder of the 14 system rev: No (unable to perform review of systems secondary to patient nonverbal) Allergies: Coded Allergies: OSMIN Inhibitors (Unverified Allergy, Unknown, UNKNOWN, 12/22/18) latex (Verified Allergy, Unknown, 12/22/18) olmesartan (Unverified Allergy, Unknown, RASH on lower legs, 12/22/18) Home Meds Active Scripts Spironolactone (SPIRONOLACTONE) 25 Mg Tablet, 25 MG PO 2XW, #30 TAB 0 Refills Prov:ARTURO CALDWELL MD 11/25/18 Metoprolol Succinate (METOPROLOL SUCCINATE) 50 Mg Tab.er.24h, 3 TAB PO QDAY, #90 TAB 3 Refills Prov:ARTURO CALDWELL MD 10/03/18 Levothyroxine Sodium (LEVOTHYROXINE SODIUM) 25 Mcg Tablet, 25 MCG PO QDAY, #45 TAB 0 Refills Prov:ARTURO CALDWELL MD 09/18/18 Triamcinolone Acet 0.5% (TRIAMCINOLONE ACETONIDE 0.5%) 15 Gm Cr, 1 BRE TP BID, #30 G Apply to affected areas bid. Prov:EVE OSWALD MD 07/03/18 Acetaminophen (MAPAP) 325 Mg Tablet, 650 MG PO Q6H PRN for PAIN OR FEVER 100 OR GREATER, #100 TAB Prov:EVE OSWALD MD 07/03/18 Aspirin (ASPIRIN EC) 325 Mg Tablet., 325 MG PO QDAY, #90 TAB Prov:EVE OSWALD MD 07/03/18 Atorvastatin Calcium (ATORVASTATIN CALCIUM) 10 Mg Tablet, 1 TAB PO DAILY for to lower cholesterol. , #90 TAB 3 Refills Prov:ARTURO CALDWELL MD 06/04/18 Reported Medications Cyanocobalamin (Vitamin B-12) (VITAMIN B-12) 1,000 Mcg Tablet, 1000 MCG PO DAILY 09/18/18 Ferrous Sulfate (FERROUS SULFATE) 324 Mg Tablet., 324 MG PO QDAY 09/18/18 Cholecalciferol (Vitamin D3) (VITAMIN D) 1,000 Unit Tablet, 1000 UNIT PO DAILY 09/18/18 Reviewed Nurses Notes: Yes Old Medical Records Reviewed: Yes Hx Smoking: No Smoking Status: Never Smoker Hx Substance Use Disorder: No Hx Alcohol Use: No Constitutional Vital Sign - Last 24 Hours 12/22/18 12/22/18 12/22/18 12/22/18 12:55 12:56 13:00 13:01 Pulse 75 Resp 14 B/P (MAP) 184/84 (117) 213/95 (134) 190/90 (123) Pulse Ox 93 12/22/18 12/22/18 12/22/18 12/22/18 13:01 13:06 13:10 13:16 Temp 97.8 Pulse 75 74 72 Resp 12 10 19 B/P (MAP) 184/84 192/96 (128) Pulse Ox 93 93 93 O2 Delivery Room Air 12/22/18 12/22/18 12/22/18 12/22/18 13:20 13:26 13:31 13:40 Pulse 75 76 Resp 21 13 B/P (MAP) 188/95 (126) 185/100 (128) Pulse Ox 93 93 12/22/18 12/22/18 13:41 13:51 Pulse 66 75 Resp 15 Pulse Ox 94 93 Physical Exam General Appearance: Alert, nonsensical speech. C-collar in place Eyes: L gaze deviation; does not cross midline ENT, Mouth: Mucous membranes are moist. Respiratory: There are no retractions, lungs are clear to auscultation. Cardiovascular: Regular rate and rhythm. Gastrointestinal: Abdomen is soft and non tender, no masses. Neurological: Right facial droop, 0-5 strength in right upper extremity, able to hold left upper extremity against gravity for 10 seconds, able to hold up left leg against gravity for 10 seconds, right lower extremity unable to hold against gravity; extremely minimal withdrawal to painful stimuli. Left gaze deviation. Dysarthria. Does not follow commands.NIHSS 23 Skin: No appreciable lacerations, abrasions, hematoma. Medical Decision Making Data Points Result Diagram: 12/22/18 1222 12/22/18 1222 Laboratory Hematology Test 12/22/18 12:22 White Blood Count 9.6 k/uL (4.5-11.0) Red Blood Count 4.72 M/uL (4.17-5.56) Hemoglobin 13.5 g/dL (12.0-16.0) Hematocrit 41.0 % (34.0-47.0) Mean Corpuscular Volume 86.9 fL (80.0-96.0) Mean Corpuscular Hemoglobin 28.6 pg (26.0-33.0) Mean Corpuscular Hemoglobin Concent 32.9 g/dL (32.0-36.0) Red Cell Distribution Width 16.7 % (11.5-14.5) H Platelet Count 214 K/uL (150-450) Mean Platelet Volume 10.5 fL (7.2-11.1) Neutrophils (%) (Auto) 51.6 % (39.4-72.5) Lymphocytes (%) (Auto) 37.3 % (17.6-49.6) Monocytes (%) (Auto) 3.6 % (4.1-12.4) L Eosinophils (%) (Auto) 6.8 % (0.4-6.7) H Basophils (%) (Auto) 0.7 % (0.3-1.4) Nucleated RBC Relative Count (auto) 0.1 /100WBC Neutrophils # (Auto) 4.9 K/uL (2.0-7.4) Lymphocytes # (Auto) 3.6 K/uL (1.3-3.6) Monocytes # (Auto) 0.3 K/uL (0.3-1.0) Eosinophils # (Auto) 0.7 K/uL (0.0-0.5) H Basophils # (Auto) 0.1 K/uL (0.0-0.1) Nucleated RBC Absolute Count (auto) 0.01 K/uL Chemistry Test 12/22/18 12:22 Sodium Level 140 mmol/L (137-145) Potassium Level 4.6 mmol/L (3.5-5.0) Chloride Level 107 mmol/L (98-107) Carbon Dioxide Level 22 mmol/L (22-31) Blood Urea Nitrogen 26 mg/dl (7-18) Creatinine 1.60 mg/dl (0.52-1.04) Glomerular Filtration Rate Calc 30.6 Random Glucose 100 mg/dl (75-110) Calcium Level 9.2 mg/dl (8.4-10.2) Total Bilirubin 0.5 mg/dl (0.2-1.3) Aspartate Amino Transf (AST/SGOT) 18 U/L (0-35) Alanine Aminotransferase (ALT/SGPT) 17 U/L (0-56) Alkaline Phosphatase 108 U/L (0-126) Troponin I < 0.012 ng/ml Total Protein 7.8 g/dl (6.3-8.2) Albumin 3.8 g/dl (3.5-5.0) Coagulation Test 12/22/18 12:22 Prothrombin Time 13.5 seconds (12.0-14.4) Prothromb Time International Ratio 1.03 Activated Partial Thromboplast Time 36 seconds (23-35) EKG/Imaging EKG Interpretation Normal sinus rhythm with occasional PVCs. No significant ST or T-wave abnormalities. Monitor Interpretation: Normal Sinus Rhythm ED Course/Re-evaluation ED Course 83-year-old female who presents after being found down with unclear last seen n ormal time with aphasia and right-sided paralysis. Prior to arrival, the patient was activated as a code stroke. On arrival, airway was intact and IV access was already obtained and therefore we moved emergently to CT scan. Fingerstick glucose in the field was within normal limits. A noncontrast head CT per my read initially did not demonstrate any evidence of hemorrhage. We had attempted to obtain a CTA of the head and neck but due to technical difficulties were unable to obtain this imaging and the patient was moved back to the resuscitation bay for neurological consultation. Patient had a fairly high NIH SS score of 23 with near complete paralysis on the right side with associated left gaze deviation and significant dysarthria. On patient arrival, we did call our air transport team [facility] to initiate their transport. Due to weather conditions, they're unable to fly and therefore they came via ground to transport the patient to the accepting facility. Patient was mildly hypertensive with blood pressures ranging from the 170s to 190 systolic, however, given the patient was not a TPA candidate, the patient was allowed permissive hypertension and no interventions were performed. Labs are notable for an INR of 1.0, platelets of 214, and a creatinine of 1.6. In discussion with the stroke neurologist Dr. Kelly as well as EMS, son, and neighbors we attempted to find a corroborating last seen normal time but were unsuccessful. The son last saw her normal yesterday and we are unable to find any neighbors who saw her normal this morning. Given this, patient did not meet criteria for TPA administration. Due to the severity of the stroke, we did move forward with plans for potential intervention. In consultation with the [facility] neurologist, we attempted to initiate transfer to [facility] for IR intervention but they were unable to accept the patient at this time. Given this, in consultation with Dr. Kelly we elected to transfer the patient to [facility] in [place] after consulting with interventional neuroradiology who accepted the patient directly; Dr. Medrano. Due to the inability to fly due to weather, and the need to consult with multiple accepting facilities in order to find the most appropriate destination for this patient, there was a slight delay in the patient leaving the emergency department. We did a long discussion with the patient's son regarding the seriousness of her condition and the need for transfer. He was in agreement with transfer. Appropriate and follow-up paperwork was filled out. Patient was transferred via ground to [facility] in [place] for further stroke management and care. Decision to Disposition Date: Dec 22, 2018 Decision to Disposition Time: 12:45 Critical Care Time I spent 80 minutes of critical care time on this patient exclusive of procedures. Due to concern for acute ischemic stroke, the patient required frequent reassessments, discussion with consulting neurologist, obtaining collateral from EMS, neighbors, and son, discussing care plan with son. Failure to provide frequent reassessments, blood pressure monitoring, frequent neurological exams may result in clinical deterioration or . Depart Departure Latest Vital Signs Vital Signs Date Time Temp Pulse Resp B/P (MAP) Pulse Ox O2 Delivery O2 Flow Rate FiO2 12/22/18 13:51 75 93 12/22/18 13:41 15 12/22/18 13:40 185/100 (128) 12/22/18 13:01 97.8 Room Air Core Temperature (Celsius): ??? Impression: Primary Impression: Ischemic stroke Condition: Critical Disposition: XFER TO ACUTE CARE HOSPITAL Referrals: ARTURO CALDWELL MD (PCP) LONNY MARCUM MD Dec 22, 2018 14:30
== END ==
LOC: ER 12:37
DX: I63.9 Cerebral infarction, unspecified (principal)
CPT/HCPCS: 70450; 71045; 84484; 85025; 85610; 85730; 93005; 99291; 99292; C1758; 82040; 82247; 82310; 82374; 82435; 82565; 82947; 84075; 84132; 84155; 84295; 84450; 84460; 84520; J7050; Q9967

== ENCOUNTER → 2018-12-22 | Outpatient (CLI) | payer MEDICARE ==
[2018-06-16 09:59] VITALS: BMI 33.5
[~2018-12-22] MED LIST changes: -IOPAMIDOL 76% 100 ML INFUS BTL 0 ML ONE; -NS(*) 0.9% 50 ML BAG 0 ML ONE; -ONDANSETRON 4 MG/2 ML VIAL IVP PRN
== END ==
LOC: AMB 13:33
PROVIDERS: ATTEND Nurse Practitioner
DX: I62.9 Nontraumatic intracranial hemorrhage, unspecified (principal)